=== PATIENT | female | born 1935 | race Caucasian/White ===

== ENCOUNTER → 2016-11-24 | Outpatient (CLI) | payer OTHER ==
[~2016-11-24] MED LIST: ADULT LOW DOSE81 MG PO; ADVAIR 250-501 EACH INH; ALIGN4 MG PO; AMBIEN 5 MG TABL5 M1 PO; ARTHRITIS PAIN650 M3 PO; ASPIR 8181 M1 PO; AUGMENTIN 875875 MG PO; BENTYL 10 MG CA10 MG PO; BENTYL 20 MG TA20 M1 PO; BENTYL20 MG PO; BENZONATATE100 MG PO; BISAC-EVAC10 MG RECTAL; CARBIDOPA-LEVO1 EAC9 PO; CEFDINIR300 MG PO; CITRUCEL CLEAR539 G1 PO; DIOVAN HCT 1601 EAC1 PO; DIOVAN160 MG PO; FLAGYL500 MG PO; FLONASE 0.05%50 MCG NASAL; GENASAL NS; HYDROCODON-ACE1 EAC7 PO; HYDROCODONE-APA1 TA1 PO; INDERAL LA 80 M80 MG PO; INDERAL LA60 MG PO; INDERAL LA80 MG PO; KLOR-CON 1010 MEQ PO; LASIX 20 MG TAB20 MG PO; LASIX 40 MG TAB40 M1 PO; LASIX 40 MG TAB40 M2 PO; LIPITOR10 MG PO; MELATONIN3 MG PO; MIRALAX17 GM PO; MUCINEX TA600 MG/TA1 PO; NORCO 5-325 TA1 EACH PO; OXYBUTYNIN 5 MG5 M2 PO; PLAVIX 75 MG TA75 M1 PO; PLAVIX 75 MG TA75 MG PO; POTASSIUM CHLO10 ME1 PO; PRAVACHOL40 MG PO; PROAIR HFA8.5 GM INH; PROBIOTIC1 EAC1 PO; PROMETHAZINE-C120 ML PO; REMERON 30 MG T30 M1 PO; SINEMET 25-1001 EAC1 PO; SPIRIVA INH; TOBRAMYCIN SULFA5 ML OP; VENTOLIN HFA 1818 GM INH; VENTOLIN17 GM INH; VISTARIL 25 MG25 M1 PO; VITAMIN E200 UNI4 PO; VITAMIN E200 UNIT PO; VITAMIN E400 UNIT PO; XARELTO10 M1 PO; ZOCOR40 MG PO; ZPAK PO; [UNRECOGNIZED DRUG - OTHER]
== END ==
LOC: RAD 13:33
DX: J44.9 Chronic obstructive pulmonary disease, unspecified (principal); J90 Pleural effusion, not elsewhere classified

== ENCOUNTER 2016-12-10 12:19 | Emergency (ER) | payer OTHER ==
[~2016-12-10] VITALS: Ht 162.6 cm; Wt 68.0 kg
[2016-12-10 12:47] LABS: HEMOGLOBIN 10.2 gm/dL (12.0-15.0); MCH 28.3 pg (26.0-34.0); MCV 88.7 fL (80.0-100.0); PLATELET COUNT 320 thou/uL (150-400); RBC 3.61 mil/uL (4.20-5.00); RDW 14.9 % (10.5-14.5); WBC 10.8 thou/uL (4.0-11.0)
[2016-12-10 12:57] LABS: MANUAL DIFF YES
[2016-12-10 12:58] LABS: ANION GAP 6 mmol/L (7-16); BUN 21 mg/dL (7-18); CHLORIDE 104 mmol/L (98-107); CO2 28 mmol/L (21-32); CREATININE 0.8 mg/dL (0.6-1.0); GLUCOSE 107 mg/dL (74-106); POTASSIUM 4.2 mmol/L (3.5-5.1); SODIUM 138 mmol/L (136-145)
[2016-12-10 13:02] LABS: APTT 27.7 Seconds (24.5-32.8); PROTIME 10.8 Seconds (9.3-11.4)
[2016-12-10 13:15] LABS: ALBUMIN 3.3 g/dL (3.4-5.0); ALKALINE PHOSPHATASE 127 U/L (46-116); CK-MB MASS < 0.5 ng/mL (<0.5-3.6); MAGNESIUM 2.2 mg/dL (1.8-2.4); NT-PRO BRAIN NAT PEPTIDE 2344 pg/mL (<300); SGOT 15 U/L (15-37); SGPT 17 U/L (30-65); TOTAL BILIRUBIN 0.4 mg/dL (<0.1-1.0); TROPONIN-I < 0.04 ng/mL (<0.04-0.07)
[2016-12-10 14:39] LABS: ABSOLUTE NEUTROPHILS 8.2 thou/uL (1.4-8.2); ANISOCYTOSIS 2+; POIKILOCYTOSIS SLIGHT; POLYCHROMASIA OCCASIONAL; TOTAL CELL COUNT 100
[2016-12-10] MEDS ORDERED: NITROGLYCERIN0.4 MG SUBLING (15:28)
== END 2016-12-10 16:20 | disposition home or self-care (01) ==
LOC: ER 12:19
PROVIDERS: Emergency Medicine
DX: R07.89 Other chest pain (principal); Z90.711 Acquired absence of uterus with remaining cervical stump; E78.00 Pure hypercholesterolemia, unspecified; J45.909 Unspecified asthma, uncomplicated; K21.9 Gastro-esophageal reflux disease without esophagitis; F32.9 Major depressive disorder, single episode, unspecified; I11.0 Hypertensive heart disease with heart failure; I50.9 Heart failure, unspecified; F10.99 Alcohol use, unspecified with unspecified alcohol-induced disorder; Z98.890 Other specified postprocedural states; Z79.82 Long term (current) use of aspirin; Z88.1 Allergy status to other antibiotic agents; Z88.8 Allergy status to other drugs, medicaments and biological substances

== ENCOUNTER → 2017-02-20 | Outpatient (CLI) | payer OTHER ==
[~2017-02-20] MED LIST changes: +NITROGLYCERIN0.4 MG SUBLING
== END ==
LOC: CAT 10:21
DX: J96.11 Chronic respiratory failure with hypoxia (principal); J43.1 Panlobular emphysema; J90 Pleural effusion, not elsewhere classified; J84.9 Interstitial pulmonary disease, unspecified

== ENCOUNTER 2017-08-29 09:04 | Emergency (ER) | payer OTHER ==
[~2017-08-29] VITALS: Ht 162.6 cm; Wt 64.4 kg
[2017-08-29 10:30] VITALS: BP 121/74
== END 2017-08-29 10:31 | disposition home or self-care (01) ==
LOC: ER 09:04
DX: R04.0 Epistaxis (principal); E78.00 Pure hypercholesterolemia, unspecified; J45.909 Unspecified asthma, uncomplicated; K21.9 Gastro-esophageal reflux disease without esophagitis; F32.9 Major depressive disorder, single episode, unspecified; I11.0 Hypertensive heart disease with heart failure; I50.9 Heart failure, unspecified; G20 Parkinson's disease; Z90.711 Acquired absence of uterus with remaining cervical stump; Z95.5 Presence of coronary angioplasty implant and graft; Z90.49 Acquired absence of other specified parts of digestive tract; Z88.8 Allergy status to other drugs, medicaments and biological substances; Z87.891 Personal history of nicotine dependence

== ENCOUNTER 2017-10-26 10:06 | Emergency (ER) | payer OTHER ==
[~2017-10-26] VITALS: Ht 162.6 cm; Wt 68.5 kg
--- NOTE | ~2017-10-26 | EKG ---
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
[2017-10-26 11:30] LABS: ABSOLUTE NEUTROPHILS 9.1 thou/uL (1.4-8.2); BASOPHILS 0.4 % (0.0-2.0); EOSINOPHILS 0.6 % (0.0-3.0); HEMATOCRIT 35.5 % (37.0-47.0); HEMOGLOBIN 11.7 gm/dL (12.0-15.0); LYMPHOCYTES 4.9 % (24.0-44.0); MCH 29.5 pg (26.0-34.0); MCHC 32.9 g/dL (28.0-37.0); MCV 89.7 fL (80.0-100.0); MONOCYTES 8.9 % (1.0-8.0); PLATELET COUNT 226 thou/uL (150-400); POLYS 85.2 % (36.0-66.0); RBC 3.96 mil/uL (4.20-5.00); RDW 16.1 % (10.5-14.5); WBC 10.7 thou/uL (4.0-11.0)
[2017-10-26 11:38] LABS: ANION GAP 7 mmol/L (7-16); BUN 19 mg/dL (7-18); CALCIUM 8.7 mg/dL (8.5-10.1); CHLORIDE 102 mmol/L (98-107); CO2 31 mmol/L (21-32); CREATININE 0.8 mg/dL (0.6-1.0); GLUCOSE 116 mg/dL (74-106); POTASSIUM 3.6 mmol/L (3.5-5.1); SODIUM 140 mmol/L (136-145)
[2017-10-26 11:47] LABS: ALBUMIN 3.1 g/dL (3.4-5.0); SGOT 17 U/L (15-37); SGPT 22 U/L (30-65); TOTAL BILIRUBIN 0.6 mg/dL (<0.1-1.0); TOTAL PROTEIN 6.7 g/dL (6.4-8.2); TROPONIN-I < 0.04 ng/mL (<0.06)
[2017-10-26 12:22] LABS: URINE BILIRUBIN NEGATIVE (Negative); URINE BLOOD NEGATIVE (Negative); URINE CLARITY CLEAR; URINE COLOR YELLOW; URINE GLUCOSE-RANDOM* NEGATIVE (Negative); URINE KETONES NEGATIVE (Negative); URINE LEUKOCYTES-REFLEX TRACE (Negative); URINE NITRITE-REFLEX NEGATIVE (Negative); URINE PROTEIN (DIPSTICK) NEGATIVE (Negative); URINE UROBILINOGEN 0.2 E.U./dl (0.2-1.0)
[2017-10-26] MEDS ORDERED: SENNA8.6 MG PO (13:52)
== END 2017-10-26 13:44 | disposition home or self-care (01) ==
LOC: ER 10:06
PROVIDERS: Physician Assistant
DX: R19.7 Diarrhea, unspecified (principal); K64.9 Unspecified hemorrhoids; R06.02 Shortness of breath; R10.31 Right lower quadrant pain; R10.32 Left lower quadrant pain; I11.0 Hypertensive heart disease with heart failure; I50.9 Heart failure, unspecified; E78.5 Hyperlipidemia, unspecified; J45.909 Unspecified asthma, uncomplicated; F17.210 Nicotine dependence, cigarettes, uncomplicated; F32.9 Major depressive disorder, single episode, unspecified; Z90.89 Acquired absence of other organs; Z88.1 Allergy status to other antibiotic agents; Z88.8 Allergy status to other drugs, medicaments and biological substances

== ENCOUNTER 2018-01-20 12:45 | Inpatient (IN) | payer OTHER ==
[~2018-01-20] VITALS: Ht 162.6 cm; Wt 68.0 kg
--- NOTE | ~2018-01-20 | EKG ---
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: Juan Antonio WILSON : 1935 Requested By: Izaiah Briceño Order Number: [id number] MD: Izaiah Briceño Measurements Intervals [place] Rate: 75 P: 73 [place]: 142 QRS: 38 QRSD: 93 T: 55 QT: 393 QTc: 439 Interpretive Statements Sinus rhythm Multiple ventricular premature complexes Nonspecific ST segment abnormality Compared to ECG 10/26/2017 10:35:38 Ventricular premature complex(es) now present Electronically Signed On 01-22-2018 16:41:18 CDT by Izaiah Briceño [email or web address] <ELECTRONICALLY SIGNED> By: Izaiah Briceño MD, [facility] 01/22/18 1641 1114 1114 Izaiah Briceño MD, [facility] /EPI
[~2018-01-20 12:45] MED LIST changes: +SENNA8.6 MG PO
[2018-01-20 12:46] VITALS: BP 174/43
[2018-01-20 13:17] LABS: ABSOLUTE NEUTROPHILS 11.7 thou/uL (1.4-8.2); BASOPHILS 0.8 % (0.0-2.0); EOSINOPHILS 2.2 % (0.0-3.0); HEMATOCRIT 32.5 % (37.0-47.0); HEMOGLOBIN 10.1 gm/dL (12.0-15.0); LYMPHOCYTES 7.1 % (24.0-44.0); MCH 25.9 pg (26.0-34.0); MCV 83.4 fL (80.0-100.0); MONOCYTES 8.7 % (1.0-8.0); PLATELET COUNT 388 thou/uL (150-400); POLYS 81.2 % (36.0-66.0); RDW 16.3 % (10.5-14.5); WBC 14.4 thou/uL (4.0-11.0)
[2018-01-20 13:26] LABS: ANION GAP 10 mmol/L (7-16); BUN 22 mg/dL (7-18); CHLORIDE 101 mmol/L (98-107); CO2 26 mmol/L (21-32); CREATININE 1.1 mg/dL (0.6-1.0); GLUCOSE 91 mg/dL (74-106); POTASSIUM 4.1 mmol/L (3.5-5.1); SODIUM 137 mmol/L (136-145)
[2018-01-20 13:34] LABS: TROPONIN-I <0.06 ng/mL (<0.06)
[2018-01-20] MEDS ORDERED: CARBIDOPA-LEVO1 EA10 PO (16:12)
[2018-01-20] MEDS ORDERED: SYNTHROID50 MCG PO (16:13)
[2018-01-20 16:17] VITALS: BP 127/54
[2018-01-20 16:50] VITALS: BP 127/54
[2018-01-20 17:24] VITALS: BP 183/59
[2018-01-20 20:01] VITALS: BP 154/52
[2018-01-21 04:44] VITALS: BP 166/83
[2018-01-21 08:00] VITALS: BP 150/64
[2018-01-21 10:00] LABS: HEMATOCRIT 30.1 % (37.0-47.0); HEMOGLOBIN 9.5 gm/dL (12.0-15.0); MCH 26.2 pg (26.0-34.0); MCHC 31.6 g/dL (28.0-37.0); MCV 82.8 fL (80.0-100.0); RBC 3.64 mil/uL (4.20-5.00); WBC 14.9 thou/uL (4.0-11.0)
[2018-01-21 10:13] LABS: CALCIUM 9.2 mg/dL (8.5-10.1); POTASSIUM 4.5 mmol/L (3.5-5.1)
[2018-01-21 20:00] VITALS: BP 137/46
[2018-01-22 04:57] VITALS: BP 188/72
[2018-01-22 09:21] VITALS: BP 187/70
[2018-01-22 13:51] VITALS: BP 187/70
[2018-01-22 16:18] VITALS: BP 187/70
[2018-01-22 17:44] VITALS: BP 141/70
[2018-01-22 19:42] VITALS: BP 138/51
[2018-01-23 04:07] VITALS: BP 181/86
[2018-01-23 08:00] VITALS: BP 167/64
[2018-01-23] MEDS ORDERED: AZITHROMYCIN 2250 MG PO (08:21)
[2018-01-23] MEDS ORDERED: CEFDINIR300 MG PO (08:22)
[2018-01-23] MEDS ORDERED: PREDNISONE 10 M10 MG PO (08:22)
[2018-01-23 15:25] VITALS: BP 160/76
[2018-01-23 18:58] VITALS: BP 137/57
[2018-01-24 03:22] VITALS: BP 179/61
[2018-01-24 09:21] VITALS: BP 110/50
[2018-01-24 10:24] LABS: CALCIUM 9.4 mg/dL (8.5-10.1)
[2018-01-24 21:35] VITALS: BP 183/70
[2018-01-25 03:30] VITALS: BP 197/85
[2018-01-25 07:34] VITALS: BP 154/52
[2018-01-25 11:05] VITALS: BP 187/70
[2018-01-25 12:28] VITALS: BP 187/70
== END 2018-01-25 12:06 | disposition home health service (06) | DRG 871 ==
LOC: ER 12:45 → EROBS 14:26 → 4E 14:26
PROVIDERS: Emergency Medicine; Family Medicine
DX: A41.9 Sepsis, unspecified organism (principal); J18.9 Pneumonia, unspecified organism; J44.0 Chronic obstructive pulmonary disease with (acute) lower respiratory infection; I50.32 Chronic diastolic (congestive) heart failure; J96.11 Chronic respiratory failure with hypoxia; K55.1 Chronic vascular disorders of intestine; J44.1 Chronic obstructive pulmonary disease with (acute) exacerbation; Z96.641 Presence of right artificial hip joint; E78.00 Pure hypercholesterolemia, unspecified; J45.909 Unspecified asthma, uncomplicated; F32.9 Major depressive disorder, single episode, unspecified; I35.0 Nonrheumatic aortic (valve) stenosis; I25.10 Atherosclerotic heart disease of native coronary artery without angina pectoris; I65.29 Occlusion and stenosis of unspecified carotid artery; I11.0 Hypertensive heart disease with heart failure; E78.5 Hyperlipidemia, unspecified; D64.9 Anemia, unspecified; G20 Parkinson's disease; I73.9 Peripheral vascular disease, unspecified; Z79.82 Long term (current) use of aspirin; Z79.899 Other long term (current) drug therapy; Z90.49 Acquired absence of other specified parts of digestive tract; Z88.8 Allergy status to other drugs, medicaments and biological substances; Z98.41 Cataract extraction status, right eye; Z95.820 Peripheral vascular angioplasty status with implants and grafts; Z90.711 Acquired absence of uterus with remaining cervical stump; Z98.42 Cataract extraction status, left eye; Z88.1 Allergy status to other antibiotic agents; Z87.891 Personal history of nicotine dependence
CPT/HCPCS: 10183

== ENCOUNTER 2018-03-10 09:08 | Inpatient (IN) | payer OTHER ==
[~2018-03-10] VITALS: Ht 162.6 cm; Wt 68.9 kg
--- NOTE | ~2018-03-10 | HC ---
[facility] [place] [address] CONSULTATION Name: EARLINE POWELL Room #: 454-P [facility] IN M.R.#: [id number] Admission: 03/10/18 Attend Phys: Lei Wayne MD Discharge: Date of : 34 Report #: [id number] THIS REPORT FOR: //name// CC: Lei Wayne DATE OF SERVICE: 03/10/2018 REASON FOR CONSULTATION: Elevated proBNP. HISTORY OF PRESENT ILLNESS: The patient is an 82-year-old woman with a history of diffuse vascular disease including remote inferior mesenteric artery stenting. Her history includes severe COPD and minimal coronary disease by prior angiography as well as mild aortic stenosis. An echocardiogram a little over a year ago demonstrated normal ejection fraction, mild aortic stenosis and moderate pulmonary hypertension. She has had numerous admissions to the hospital primarily related to exacerbation in her lung disease. Today's admission is no different. Her BNP has never been normal dating back to 2013. Today's BNP level is 7284. She denies orthopnea or paroxysmal nocturnal dyspnea. No lower extremity edema. She denies palpitations, near syncope or syncope. No chest heaviness or pressure. Her shortness of breath seemed to worsen along with hypoxemia about 4 days ago. She was offered admission to the hospital last week, although declined. Her oxygen requirements chronically are 2 liters. Recently, she has been on 4 liters. She has an occasional nonproductive cough. No recent changes in her medicines. She denies fevers, chills or night sweats. HOME MEDICATIONS: Include potassium 10 mEq daily, Spiriva, Advair, propranolol LA 80 mg daily, atorvastatin 40 mg daily, aspirin 81 mg daily, Lasix 20 mg as needed, levodopa and carbidopa 1 tablet 3 times a day, levothyroxine 50 mcg daily, Atrovent nebulizer. ALLERGIES: SHE IS ALLERGIC TO CIPRO, QUINOLONES, ERYTHROMYCIN AND PSEUDOEPHEDRINE. SOCIAL HISTORY: She is a former smoker, nondrinker. FAMILY HISTORY: Unremarkable for premature coronary artery disease. PAST MEDICAL HISTORY: Notable for COPD, mesenteric artery stenting, minimal coronary disease by prior angiography, dyslipidemia, hypertension, Parkinson disease, bilateral breast reduction, right total hip replacement, history of peptic ulcer disease with GI bleeding and erosive esophagitis (2012). REVIEW OF SYSTEMS: All systems negative except as that noted above. PHYSICAL EXAMINATION: [facility] [address] [place] [address] CONSULTATION Name: EARLINE POWELL Room #: 454-P [facility] IN M.R.#: [id number] Admission: 03/10/18 Attend Phys: Lei Wayne MD Discharge: Date of : 34 Report #: [id number] GENERAL: A pleasant woman who is in no distress. VITAL SIGNS: Blood pressure is 140/60, heart rate of 80 and regular. She is afebrile. Height 5 feet 4 inches tall, 154 pounds. This is at or near her "dry weight." HEENT: There are neither xanthelasma, subcutaneous xanthomata, oral mucosal or digital cyanosis or kyphoscoliosis present. CHEST: Clear to auscultation and percussion. CARDIOVASCULAR: Regular rate and rhythm with normal S1 and increased pulmonic closure sound. Jugular venous pressure is not elevated. ABDOMEN: Soft and nontender. EXTREMITIES: Without cyanosis, clubbing or edema. Radial pulses are 2+. NEUROLOGIC: She is alert with a nonfocal exam. LABORATORY DATA: Sodium 139, potassium 3.6, creatinine 1.0. Serum iron 17, percent saturation 5%. Troponin 0. White count 17,000, hemoglobin 9.6, hemoglobin a year ago was 13, platelet count 361. Chest x-ray demonstrates no acute process, normal heart size and vascularity. CT scan negative for pulmonary embolism. IMPRESSION: 1. Chronic obstructive pulmonary disease exacerbation; pulmonary hypertension. 2. Coronary artery disease, mild and asymptomatic. Normal ejection fraction. 3. Aortic stenosis, nonrheumatic, mild. 4. Chronic diastolic heart failure. 5. Hypertension. 6. Peripheral vascular disease with remote mesenteric stenting, clinically stable. 7. Dyslipidemia. 8. Anemia, iron deficient. RECOMMENDATIONS: 1. Resume usual medicines. Volume status is stable. 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 2. I agree with plans directed primarily towards exacerbation of her lung disease. I have discussed these issues with her name detail. Thank you for asking me to participate in her care. <ELECTRONICALLY SIGNED> By: Izaiah Briceño MD, [facility] 03/13/18 0956 1702 0414 Izaiah Briceño MD, FAC /nt
--- NOTE | ~2018-03-10 | 2DMMODE ---
[facility] [address] [place] [address] 2 D/M-MODE ECHOCARDIOGRAM Name: EARLINE POWELL Room #: 454-P [facility] IN [facility].#: [id number] Admission: 03/10/18 Attend Phys: Lei Wayne, Discharge: Date of : 34 Date of Service: 03/11/18 1548 Report #: [id number] THIS REPORT FOR: //name// APPROVED REPORT Study performed: 03/11/2018 13:31:53 EXAM: Comprehensive 2D, Doppler, and color-flow Echocardiogram Patient Location: Bedside Room #: 454 Status: routine BSA: 1.75 HR: 76 bpm BP: 167/64 mmHg Rhythm: NSR Other Information Study Quality: Good Indications Dyspnea. Hx: CHF, COPD, HTN, PVD. 2D Dimensions RVDd: 33.09 mm IVSd: 12.00 (7-11mm) LVOT Diam: 18.94 (18-24mm) LVDd: 45.00 mm PWd: 12.00 (7-11mm) Ascending Ao: 27.10 (22-36mm) LVDs: 31.01 (25-40mm) Aortic Root: 29.15 mm Volumes Left Atrial Volume (Systole) Single Plane 4CH: 37.66 mL Single Plane 2CH: 68.07 mL Aortic Valve AoV Peak Leonidas.: 2.69 m/s AO Peak Gr.: 28.93 mmHg LVOT Max P.58 mmHg AO Mean Gr.: 18.25 mmHg AO V2 Mean: 2.08 m/s LVOT Max V: 1.07 m/s AO V2 VTI: 64.35 cm CARLOS Vmax: 1.12 cm2 Mitral Valve E/A Ratio: 0.8 MV Decel. Time: 222.66 ms [facility] [address] [place] [address] 2 D/M-MODE ECHOCARDIOGRAM Name: EARLINE POWELL Room #: 454-P [facility] IN .R.#: [id number] Admission: 03/10/18 Attend Phys: Lei Wayne, Discharge: Date of : 34 Date of Service: 03/11/18 1548 Report #: [id number] MV E Max Leonidas.: 1.02 m/s MV A Leonidas.: 1.35 m/s MV PHT: 64.57 ms IVRT: 58.82 ms Pulmonary Valve PV Peak Leonidas.: 0.95 m/s PV Peak Gr.: 3.61 mmHg Pulmonary Vein P Vein S: 0.58 m/s P Vein D: 0.69 m/s P Vein S/D Ratio: 0.84 Tricuspid Valve TR Peak Leonidas.: 3.25 m/s RAP Estimate: 10.00 mmHg TR Peak Gr.: 42.14 mmHg PA Pressure: 52.00 mmHg Left Ventricle The left ventricle is normal size. There is normal LV segmental wall motion. Mild concentric left ventricular hypertrophy. Left ventricular systolic function is normal. LVEF is 60-65%. Mild diastolic dysfunction is present (impaired relaxation pattern). Right Ventricle The right ventricle is normal size. The right ventricular systolic function is normal. Atria The left atrium size is normal. The right atrium size is normal. Aortic Valve Aortic valve is mildly calcified, trileaflet. Mild aortic regurgitation. Mild aortic stenosis. Peak pressure gradient is 29mmHg and a mean gradient of 18mmHg. Mitral Valve Mild mitral annular calcification. Mild mitral regurgitation. No evidence of mitral valve stenosis. Tricuspid Valve The tricuspid valve is normal in structure. Trace to mild tricuspid regurgitation. Estimated PAP is 50mmHg. [address] [address] 2 D/M-MODE ECHOCARDIOGRAM Name: EARLINE POWELL Room #: 454-P [facility] IN ..#: [id number] Admission: 03/10/18 Attend Phys: Lei Wayne, Discharge: Date of : 34 Date of Service: 03/11/18 1548 Report #: [id number] Pulmonic Valve The pulmonary valve is normal in structure. There is no pulmonic valvular regurgitation. Great Vessels The aortic root is normal in size. The ascending aorta is normal in size. IVC is normal in size and collapses <50% with inspiration. Pericardium There is no pericardial effusion. <Conclusion> Left ventricular systolic function is normal. There is normal LV segmental wall motion. LVEF is 60-65%. Mild diastolic dysfunction Aortic valve is mildly calcified, trileaflet. Mild aortic stenosis. Peak pressure gradient is 29mmHg and a mean gradient of 18mmHg. Mild aortic regurgitation. Mild mitral annular calcification. Mild mitral regurgitation. Trace to mild tricuspid regurgitation. Estimated pulmonary artery pressure of 50mmHg. There is no pericardial effusion. <ELECTRONICALLY SIGNED> By: Izaiah Briceño MD, FACC 03/11/18 1548 1548 1548 Izaiah Briceño MD, FACC /INF
--- NOTE | ~2018-03-10 | HC ---
[facility] [place] [address] CONSULTATION Name: EARLINE POWELL Room #: 454-P [facility] IN M.R.#: [id number] Admission: 03/10/18 Attend Phys: Lei Wayne MD Discharge: Date of : 34 Report #: [id number] THIS REPORT FOR: //name// CC: Lei Wayne Pulmonary Consultation REFERRING PHYSICIAN: Lei Wayne MD; Ms. Cara Lomas, physician parts room assistant from the ER. REASON FOR CONSULTATION: Dyspnea. HISTORY OF PRESENT ILLNESS: The patient is an 82-year-old white female who presents to emergency room with progressive dyspnea for the past 5 days. A pulmonary consultation was requested. The patient is known to this physician. In fact, she was seen in the office on 03/04. At that time, she is felt to be in moderate distress along with dyspnea and weakness. I had recommended hospitalization at that time, but she refused. She was given prednisone and antibiotics instead. Without improvement, she presented to the emergency room. Otherwise, denies any sore throat, febrile illness, chest pain, productive cough. Baseline FEV1 is 1.0 L, 60% of the predicted, she is currently on 2 L of O2. Her FVC measured 1.38 L, 57% predicted. Her recent FEV1 on 03/04/2018 showed a FEV1 of 0.83 L or 49% predicted. She is normally on nebulized Pulmicort 0.5 mg b.i.d., Proventil HFA 2 puffs p.r.n., Advair 250 mcg one puff twice a day, nebulized Xopenex p.r.n., Spiriva 1 puff once a day. PAST MEDICAL HISTORY: As mentioned above, COPD, severe impairment, she was felt to have a component of asthma/COPD overlap, 2 L of O2 chronically, aortic stenosis, coronary artery disease, carotid artery disease, hypertension, ischemic colitis, peripheral vascular disease. PAST SURGICAL HISTORY: Notable for appendectomy, hip surgery tunes 3, hysterectomy, sinus surgery. She had abdominal surgery for ischemic colitis, breast reduction surgery, appendectomy and adenoidectomy. ALLERGIES: CIPROFLOXACIN, reaction not specified; ERYTHROMYCIN, reaction not specified; IRON results in GI intolerance. PSEUDOEPHEDRINE causes palpitations. CURRENT HOME MEDICATIONS: Include Proventil, aspirin, Lipitor, nebulized Pulmicort, Sinemet, Bentyl, Advair, Lasix, nebulized ipratropium along with nebulized Xopenex p.r.n., Synthroid, Nitrostat, Ditropan, potassium supplements, [place] [address] CONSULTATION Name: EARLINE POWELL Room #: 454-P [facility].#: [id number] Admission: 03/10/18 Attend Phys: Lei Wayne MD Discharge: Date of : 34 Report #: [id number] Inderal, Spiriva. FAMILY HISTORY: Notable for sister with lung and renal cell carcinoma. Both parents . SOCIAL HISTORY: The patient has smoked 1 pack a day for 20 years. She quit in 1979. She drinks socially. She still lives independently at home. REVIEW OF SYSTEMS: As mentioned above, otherwise 10-point system review negative. PHYSICAL EXAMINATION: GENERAL: She is awake, alert, appears moderately dyspneic, mildly distressed. VITAL SIGNS: Temperature is 98 degrees Fahrenheit, pulse is 90, respiratory rate is 20, blood pressure 150/60 mmHg, saturation 95%. HEENT: Unremarkable. NECK: Supple without lymphadenopathy or thyromegaly. CHEST: Breath sounds are decreased bilaterally with mild expiratory wheezes. CARDIOVASCULAR: Normal S1, S2. There are no rubs, murmurs or gallops. There is no JVD. There is no carotid bruit. Pulses are 2+/4+ bilaterally. ABDOMEN: Soft, nontender, no organomegaly or masses felt. GENITOURINARY: Deferred. RECTAL: Deferred. EXTREMITIES: No cyanosis, clubbing or edema. IMAGING DATA: Chest x-ray on admission is clear. CT chest angiogram performed shows patchy ground-glass opacities. DIAGNOSTIC DATA: EKG shows minimal ST depression. Otherwise, no acute ischemic changes. LABORATORY DATA: BNP is 7200. Electrolytes are normal. Liver enzymes are mildly abnormal. WBC 32249, hemoglobin 9.6, platelets are normal, no evidence of significant bandemia. Albumin 3.0. IMPRESSION: 1. Progressive dyspnea in this 82-year-old white female, probably secondary to exacerbation of underlying chronic obstructive pulmonary disease along with deconditioning and weakness. CT chest angiogram shows patchy ground glass opacity. Pneumonia is felt to be likely though cannot be ruled out. Other considerations are good possibility of other inflammatory processes such as interstitial lung disease, hypersensitivity pneumonitis. 2. Chronic obstructive pulmonary disease, severe impairment with exacerbation. 3. Acute on chronic hypoxic respiratory failure, she is normally on 2 L of O2. [facility] [address] [place] [address] CONSULTATION Name: EARLINE POWELL Room #: 454-P [facility] IN M.R.#: [id number] Admission: 03/10/18 Attend Phys: Lei Wayne MD Discharge: Date of : 34 Report #: [id number] 4. Hypertension. 5. Aortic stenosis. 6. Coronary artery disease. 7. Possible acute on chronic diastolic heart failure given chest CT findings. RECOMMENDATION: We will continue corticosteroids, bronchodilators along with broad spectrum antibiotics. She will need a followup chest x-ray regarding ground glass opacities. She may need further workup if opacities persistent. In the meantime, we would also consider gentle diuresis given chest CT findings. DVT and GI prophylaxis will be addressed. Thank you for this consultation. <ELECTRONICALLY SIGNED> By: Dino Grande MD 03/11/18 1933 1851 0422 Dino Grande MD /nt
--- NOTE | ~2018-03-10 | EKG ---
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: Juan Antonio MENDOZA RN : 1935 Requested By: Lisa Lomas Order Number: [id number] MD: Izaiah Briceño Measurements Intervals [place] Rate: 85 P: 75 ND: 135 QRS: 25 QRSD: 90 T: 49 QT: 370 QTc: 440 Interpretive Statements Sinus rhythm Minimal ST depression, diffuse leads Compared to ECG 01/22/2018 11:14:07 Ventricular premature complex(es) no longer present Electronically Signed On 03-10-2018 17:15:24 CDT by Izaiah Briceño [email or web address] <ELECTRONICALLY SIGNED> By: Izaiah Briceño MD, [facility] 03/10/18 1715 0956 0956 Izaiah Briceño MD, [facility] /EPI
[~2018-03-10 09:08] MED LIST changes: +AZITHROMYCIN 2250 MG PO; +CARBIDOPA-LEVO1 EA10 PO; +PREDNISONE 10 M10 MG PO; +SYNTHROID50 MCG PO
[2018-03-10 09:09] VITALS: BP 181/54
[2018-03-10 09:35] LABS: ABSOLUTE NEUTROPHILS 15.3 thou/uL (1.4-8.2); BASOPHILS 1.1 % (0.0-2.0); EOSINOPHILS 1.1 % (0.0-3.0); HEMATOCRIT 31.2 % (37.0-47.0); HEMOGLOBIN 9.6 gm/dL (12.0-15.0); LYMPHOCYTES 3.7 % (24.0-44.0); MCH 23.5 pg (26.0-34.0); MCHC 30.7 g/dL (28.0-37.0); MCV 76.6 fL (80.0-100.0); MONOCYTES 5.3 % (1.0-8.0); PLATELET COUNT 361 thou/uL (150-400); POLYS 88.8 % (36.0-66.0); RBC 4.07 mil/uL (4.20-5.00); RDW 18.8 % (10.5-14.5); WBC 17.3 thou/uL (4.0-11.0)
[2018-03-10 09:45] LABS: ANION GAP 7 mmol/L (7-16); BUN 15 mg/dL (7-18); CALCIUM 9.5 mg/dL (8.5-10.1); CHLORIDE 102 mmol/L (98-107); CO2 30 mmol/L (21-32); GLUCOSE 180 mg/dL (74-106); POTASSIUM 3.6 mmol/L (3.5-5.1); SODIUM 139 mmol/L (136-145)
[2018-03-10 09:48] LABS: PROTIME 9.9 Seconds (9.3-11.4)
[2018-03-10 09:53] LABS: SGOT 18 U/L (15-37); SGPT 23 U/L (30-65); TOTAL BILIRUBIN 0.5 mg/dL (<0.1-1.0); TOTAL PROTEIN 7.1 g/dL (6.4-8.2); TROPONIN-I <0.06 ng/mL (<0.06)
[2018-03-10 10:43] LABS: ANISOCYTOSIS 1+; HYPOCHROMASIA SLIGHT; PLATELET ESTIMATE NORMAL
[2018-03-10 10:46] LABS: URINE BILIRUBIN NEGATIVE (Negative); URINE BLOOD NEGATIVE (Negative); URINE CLARITY CLEAR; URINE COLOR YELLOW; URINE GLUCOSE-RANDOM* NEGATIVE (Negative); URINE KETONES NEGATIVE (Negative); URINE NITRITE-REFLEX NEGATIVE (Negative); URINE PROTEIN (DIPSTICK) NEGATIVE (Negative); URINE UROBILINOGEN 0.2 E.U./dl (0.2-1.0)
[2018-03-10 10:55] LABS: URINE LEUKOCYTES-REFLEX TRACE (Negative)
[2018-03-10] MEDS ORDERED: IPRAT-ALBUT 0.5-3 ML (12:27)
[2018-03-10] MEDS ORDERED: ALIGN4 MG PO (12:28)
[2018-03-10 13:53] VITALS: BP 103/98
[2018-03-10 14:17] VITALS: BP 145/47
[2018-03-10 15:04] VITALS: BP 149/63
[2018-03-10 16:00] LABS: % SATURATION 5 % (20-39); IRON 17 ug/dL (50-170); TIBC 353 ug/dL (250-450)
[2018-03-10 19:25] VITALS: BP 165/63
[2018-03-11 01:49] VITALS: BP 165/63
[2018-03-11 04:27] LABS: CALCIUM 8.4 mg/dL (8.5-10.1); POTASSIUM 3.6 mmol/L (3.5-5.1)
[2018-03-11 07:23] VITALS: BP 192/78
[2018-03-11 08:27] VITALS: BP 167/64
[2018-03-11 19:31] VITALS: BP 139/66
[2018-03-11 23:01] VITALS: BP 139/66
[2018-03-12 05:36] LABS: CALCIUM 8.7 mg/dL (8.5-10.1); POTASSIUM 4.3 mmol/L (3.5-5.1)
[2018-03-12 08:26] VITALS: BP 152/64
[2018-03-12 15:48] VITALS: BP 149/66
[2018-03-12 19:33] VITALS: BP 153/53
[2018-03-13 07:37] VITALS: BP 158/79
[2018-03-13 20:00] VITALS: BP 221/99
[2018-03-13 22:42] VITALS: BP 192/80
[2018-03-14 00:15] VITALS: BP 180/80
[2018-03-14 06:30] VITALS: BP 208/86
[2018-03-14 08:20] VITALS: BP 194/76
[2018-03-14 08:41] LABS: HEMATOCRIT 33.4 % (37.0-47.0); HEMOGLOBIN 10.2 gm/dL (12.0-15.0); MCH 23.6 pg (26.0-34.0); MCHC 30.4 g/dL (28.0-37.0); MCV 77.4 fL (80.0-100.0); PLATELET COUNT 488 thou/uL (150-400); RBC 4.31 mil/uL (4.20-5.00); RDW 18.9 % (10.5-14.5); WBC 26.8 thou/uL (4.0-11.0)
[2018-03-14 09:01] LABS: CALCIUM 9.8 mg/dL (8.5-10.1); CREATININE 0.8 mg/dL (0.6-1.0); MAGNESIUM 2.4 mg/dL (1.8-2.4); POTASSIUM 4.2 mmol/L (3.5-5.1)
[2018-03-14 09:11] LABS: ABSOLUTE NEUTROPHILS 25.7 thou/uL (1.4-8.2)
[2018-03-14 09:12] LABS: ANISOCYTOSIS 1+; LARGE PLATELETS OCCASIONAL; POIKILOCYTOSIS SLIGHT
[2018-03-14 09:13] LABS: POLYCHROMASIA SLIGHT
[2018-03-14 10:39] VITALS: BP 137/60
[2018-03-14 20:00] VITALS: BP 164/74
[2018-03-15 08:21] VITALS: BP 183/81
[2018-03-15 11:00] VITALS: BP 140/83
[2018-03-15 22:05] VITALS: BP 162/68
[2018-03-16 07:15] VITALS: BP 180/73
[2018-03-16 07:34] LABS: HEMATOCRIT 33.1 % (37.0-47.0); HEMOGLOBIN 10.1 gm/dL (12.0-15.0); MCH 24.1 pg (26.0-34.0); MCHC 30.5 g/dL (28.0-37.0); PLATELET COUNT 455 thou/uL (150-400); RBC 4.19 mil/uL (4.20-5.00); RDW 19.6 % (10.5-14.5); WBC 24.2 thou/uL (4.0-11.0)
[2018-03-16 07:52] LABS: ALBUMIN 2.9 g/dL (3.4-5.0); CALCIUM 9.1 mg/dL (8.5-10.1); CREATININE 0.8 mg/dL (0.6-1.0); POTASSIUM 4.1 mmol/L (3.5-5.1); TOTAL BILIRUBIN 0.2 mg/dL (<0.1-1.0); TOTAL PROTEIN 5.8 g/dL (6.4-8.2)
[2018-03-16 08:53] LABS: ABSOLUTE NEUTROPHILS 23.2 thou/uL (1.4-8.2); PLATELET ESTIMATE INCREASED
[2018-03-16] MEDS ORDERED: LISINOPRIL20 MG PO (12:40)
[2018-03-16] MEDS ORDERED: PREDNISONE 10 M10 MG PO (12:41)
[2018-03-16] MEDS ORDERED: CEFDINIR300 MG PO (12:41)
[2018-03-16 12:49] VITALS: BP 180/73
== END 2018-03-16 14:42 | disposition home health service (06) | DRG 871 ==
LOC: ER 09:08 → EROBS 11:46 → 4W 11:46 → SICU 11:46 → 4W 14:20 → SICU 03-13 19:33 → ENTRNSPT 03-16 14:04 → EDTRNSPTSTS 03-16 14:11 → SICU 03-16 14:42
PROVIDERS: Family Medicine; Internal Medicine; Pediatrics; Physician Assistant
DX: A41.9 Sepsis, unspecified organism (principal); J18.9 Pneumonia, unspecified organism; J96.21 Acute and chronic respiratory failure with hypoxia; I50.43 Acute on chronic combined systolic (congestive) and diastolic (congestive) heart failure; J44.1 Chronic obstructive pulmonary disease with (acute) exacerbation; I13.0 Hypertensive heart and chronic kidney disease with heart failure and stage 1 through stage 4 chronic kidney disease, or unspecified chronic kidney disease; E78.00 Pure hypercholesterolemia, unspecified; Z96.1 Presence of intraocular lens; Z96.641 Presence of right artificial hip joint; K58.9 Irritable bowel syndrome, unspecified; K21.9 Gastro-esophageal reflux disease without esophagitis; F32.9 Major depressive disorder, single episode, unspecified; G20 Parkinson's disease; Y95 Nosocomial condition; I35.0 Nonrheumatic aortic (valve) stenosis; I27.20 Pulmonary hypertension, unspecified; E78.5 Hyperlipidemia, unspecified; I25.10 Atherosclerotic heart disease of native coronary artery without angina pectoris; I73.9 Peripheral vascular disease, unspecified; D50.9 Iron deficiency anemia, unspecified; N18.9 Chronic kidney disease, unspecified; E03.9 Hypothyroidism, unspecified; I16.0 Hypertensive urgency; Z53.29 Procedure and treatment not carried out because of patient's decision for other reasons; Z90.89 Acquired absence of other organs; Z99.81 Dependence on supplemental oxygen; Z87.01 Personal history of pneumonia (recurrent); Z90.49 Acquired absence of other specified parts of digestive tract; Z90.710 Acquired absence of both cervix and uterus; Z98.42 Cataract extraction status, left eye; Z98.41 Cataract extraction status, right eye; Z79.899 Other long term (current) drug therapy; Z79.82 Long term (current) use of aspirin; Z88.8 Allergy status to other drugs, medicaments and biological substances; Z87.891 Personal history of nicotine dependence; Z80.51 Family history of malignant neoplasm of kidney; Z80.1 Family history of malignant neoplasm of trachea, bronchus and lung
CPT/HCPCS: 10045; 15000

== ENCOUNTER 2018-04-07 09:22 | Inpatient (IN) | payer OTHER ==
[~2018-04-07] VITALS: Ht 162.6 cm; Wt 73.5 kg
[~2018-04-07 09:22] MED LIST changes: +IPRAT-ALBUT 0.5-3 ML; +LISINOPRIL20 MG PO
[2018-04-07 09:58] VITALS: BP 162/58
[2018-04-07 12:13] LABS: HEMATOCRIT 39.9 % (37.0-47.0); HEMOGLOBIN 12.6 gm/dL (12.0-15.0); MCH 26.6 pg (26.0-34.0); MCHC 31.6 g/dL (28.0-37.0); MCV 84.1 fL (80.0-100.0); RBC 4.75 mil/uL (4.20-5.00); RDW 27.5 % (10.5-14.5); WBC 12.9 thou/uL (4.0-11.0)
[2018-04-07 12:26] LABS: ALBUMIN 3.2 g/dL (3.4-5.0); CALCIUM 9.3 mg/dL (8.5-10.1); CREATININE 0.9 mg/dL (0.6-1.0); POTASSIUM 4.2 mmol/L (3.5-5.1); TOTAL BILIRUBIN 0.5 mg/dL (<0.1-1.0); TOTAL PROTEIN 6.8 g/dL (6.4-8.2)
[2018-04-07 14:05] VITALS: BP 191/61
[2018-04-07 17:37] LABS: CALCIUM 9.3 mg/dL (8.5-10.1); MAGNESIUM 2.2 mg/dL (1.8-2.4); POTASSIUM 4.4 mmol/L (3.5-5.1)
[2018-04-07 18:26] VITALS: BP 173/98
[2018-04-07 20:05] VITALS: BP 123/43
[2018-04-07 23:36] VITALS: BP 152/59
[2018-04-08 03:15] VITALS: BP 173/69
[2018-04-08 06:27] LABS: HEMATOCRIT 32.7 % (37.0-47.0); MCH 27.2 pg (26.0-34.0); MCHC 32.1 g/dL (28.0-37.0); MCV 84.7 fL (80.0-100.0); RBC 3.86 mil/uL (4.20-5.00); RDW 27.3 % (10.5-14.5); WBC 10.2 thou/uL (4.0-11.0)
[2018-04-08 06:37] LABS: CALCIUM 8.6 mg/dL (8.5-10.1); CREATININE 0.8 mg/dL (0.6-1.0); POTASSIUM 4.6 mmol/L (3.5-5.1)
[2018-04-08 06:40] LABS: HEMOGLOBIN 10.5 gm/dL (12.0-15.0)
[2018-04-08 15:48] VITALS: BP 139/56
[2018-04-08 19:20] VITALS: BP 147/64
[2018-04-09 04:54] VITALS: BP 160/70
[2018-04-09 07:35] VITALS: BP 188/85
[2018-04-09 14:20] VITALS: BP 148/62
[2018-04-09 19:44] VITALS: BP 139/66
[2018-04-10 08:14] VITALS: BP 169/73
[2018-04-10 19:44] VITALS: BP 179/64
[2018-04-11 07:58] VITALS: BP 190/96
[2018-04-11 14:53] LABS: HEMATOCRIT 39.9 % (37.0-47.0); HEMOGLOBIN 12.6 gm/dL (12.0-15.0); MCH 26.5 pg (26.0-34.0); MCHC 31.6 g/dL (28.0-37.0); MCV 83.8 fL (80.0-100.0); RBC 4.77 mil/uL (4.20-5.00); WBC 12.2 thou/uL (4.0-11.0)
[2018-04-11 15:00] LABS: CALCIUM 9.3 mg/dL (8.5-10.1); CREATININE 1.1 mg/dL (0.6-1.0); MAGNESIUM 2.1 mg/dL (1.8-2.4); POTASSIUM 3.6 mmol/L (3.5-5.1)
[2018-04-11 20:00] VITALS: BP 127/52
[2018-04-12 06:52] LABS: HEMOGLOBIN 12.8 gm/dL (12.0-15.0); MCH 26.2 pg (26.0-34.0); MCHC 31.3 g/dL (28.0-37.0); MCV 83.7 fL (80.0-100.0); RBC 4.89 mil/uL (4.20-5.00); RDW 27.2 % (10.5-14.5); WBC 15.3 thou/uL (4.0-11.0)
[2018-04-12 07:06] LABS: CALCIUM 9.3 mg/dL (8.5-10.1); MAGNESIUM 2.2 mg/dL (1.8-2.4); POTASSIUM 3.5 mmol/L (3.5-5.1)
[2018-04-12 07:30] VITALS: BP 151/68
[2018-04-12 09:41] VITALS: BP 156/80
[2018-04-12] MEDS ORDERED: LOPRESSOR25 PO (10:36)
[2018-04-12] MEDS ORDERED: AMLODIPINE BESYL5 M1 PO (10:37)
[2018-04-12] MEDS ORDERED: AUGMENTIN 875-1 EACH PO (10:38)
== END 2018-04-12 13:15 | disposition home health service (06) | DRG 291 ==
LOC: 3W 09:22 → 4W 09:22 → SICU 04-09 19:11 → ENTRNSPT 04-12 13:18 → EDTRNSPTSTS 04-12 13:21
PROVIDERS: Family Medicine; Internal Medicine; Internal Medicine Pulmonary Disease
DX: I11.0 Hypertensive heart disease with heart failure (principal); J96.21 Acute and chronic respiratory failure with hypoxia; J44.1 Chronic obstructive pulmonary disease with (acute) exacerbation; E78.00 Pure hypercholesterolemia, unspecified; I50.9 Heart failure, unspecified; K21.9 Gastro-esophageal reflux disease without esophagitis; F32.9 Major depressive disorder, single episode, unspecified; I25.10 Atherosclerotic heart disease of native coronary artery without angina pectoris; I35.0 Nonrheumatic aortic (valve) stenosis; K58.9 Irritable bowel syndrome, unspecified; I48.91 Unspecified atrial fibrillation; Z96.641 Presence of right artificial hip joint; M19.90 Unspecified osteoarthritis, unspecified site; Z96.1 Presence of intraocular lens; Z90.49 Acquired absence of other specified parts of digestive tract; Z90.710 Acquired absence of both cervix and uterus; Z98.42 Cataract extraction status, left eye; Z98.41 Cataract extraction status, right eye; Z87.891 Personal history of nicotine dependence; Z79.51 Long term (current) use of inhaled steroids; Z79.82 Long term (current) use of aspirin; Z79.899 Other long term (current) drug therapy; Z88.1 Allergy status to other antibiotic agents; Z88.8 Allergy status to other drugs, medicaments and biological substances; Z80.8 Family history of malignant neoplasm of other organs or systems
CPT/HCPCS: 10047; 10779; 15002

== ENCOUNTER 2019-02-09 11:11 | Inpatient (IN) | payer OTHER ==
[~2019-02-09] VITALS: Ht 162.6 cm; Wt 68.0 kg
[~2019-02-09 11:11] MED LIST changes: +AMLODIPINE BESYL5 M1 PO; +AUGMENTIN 875-1 EACH PO; +LOPRESSOR25 PO
[2019-02-09 11:12] VITALS: BP 106/55
[2019-02-09 11:44] LABS: HEMATOCRIT 35.7 % (37.0-47.0); HEMOGLOBIN 11.6 gm/dL (12.0-15.0); MCH 29.8 pg (26.0-34.0); MCHC 32.3 g/dL (28.0-37.0); PLATELET COUNT 321 thou/uL (150-400); RBC 3.88 mil/uL (4.20-5.00); RDW 14.5 % (10.5-14.5); WBC 20.5 thou/uL (4.0-11.0)
[2019-02-09 11:45] LABS: BE(vivo) 1.7 mmol/L (-2 to +3); HCO3 25.6 mmol/L (22.0-26.0); PCO2 37.6 mmHg (35.0-45.0); PO2 74.9 mmHg (80.0-100.0); pH 7.451 (7.360-7.450); sO2 95.7 % (92.0-98.0)
[2019-02-09 11:50] LABS: ANION GAP 8 mmol/L (7-16); BUN 23 mg/dL (7-18); CALCIUM 9.3 mg/dL (8.5-10.1); CHLORIDE 97 mmol/L (98-107); CO2 28 mmol/L (21-32); CREATININE 1.1 mg/dL (0.6-1.0); GLUCOSE 113 mg/dL (74-106); POTASSIUM 3.7 mmol/L (3.5-5.1); SODIUM 133 mmol/L (136-145)
[2019-02-09 12:00] LABS: ALBUMIN 2.8 g/dL (3.4-5.0); SGOT 19 U/L (15-37); SGPT 8 U/L (30-65); TOTAL BILIRUBIN 0.5 mg/dL (<0.1-1.0); TOTAL PROTEIN 7.1 g/dL (6.4-8.2); TROPONIN-I <0.06 ng/mL (<0.06)
[2019-02-09 12:20] LABS: ABSOLUTE NEUTROPHILS 17.2 thou/uL (1.4-8.2); ANISOCYTOSIS SLIGHT; POIKILOCYTOSIS SLIGHT
--- NOTE | 2019-02-09 13:26 | EKG ---
[address] [address] ELECTROCARDIOGRAM REPORT Name: EARLINE POWELL Room #: 170-6 ADM IN M.R.#: [id number] ������������������ Admission: 02/09/19 ������������������ Attend Phys: Lei Wayne MD Discharge: ������������������ Date of : 34 Report #: [id number] ����������������������������������������������������������������� [id number] THIS REPORT FOR: //name// [facility] ED Test Date: 2019-02-09 Test Time: 11:49:46 Pat Name: EARLINE POWELL Department: Room: 170 Gender: F Trainer: jesus : 1935 Requested By: Anila Bryson Order Number: [id number] MD: Pavan Solorzano Measurements Intervals [place] Rate: 95 P: 72 NJ: 135 QRS: 0 QRSD: 84 T: 70 QT: 331 QTc: 416 Interpretive Statements Sinus rhythm Baseline wander in lead(s) V5 Compared to ECG 03/10/2018 09:56:42 ST (T wave) deviation no longer present Electronically Signed On 02-09-2019 13:26:24 CDT by Pavan Solorzano [email or web address] ��������������������������������������������� <ELECTRONICALLY SIGNED> ���������������������������������������� By: Pavan Solorzano MD ��������������������������������������������� 02/09/19 1326 1149 1149 Pavan Solorzano MD /[facility]
[2019-02-09 15:12] VITALS: BP 146/49
[2019-02-09 16:01] VITALS: BP 161/53
[2019-02-09 17:40] VITALS: BP 136/63
--- NOTE | 2019-02-09 18:44 | NUR ---
PATIENT ADMIT TO UNIT AT 1730. A/0 X4. SOB WITH EXERTION. DENIES PAIN. UP WITH ASSISTED. WILL KEEP MONITOR.
[2019-02-09 19:21] VITALS: BP 143/48
[2019-02-10 03:33] VITALS: BP 180/86
--- NOTE | 2019-02-10 07:12 | NUR ---
ASSUMED CARE AT 1900. PT REPORTS FEELING SOB EVEN AT REST, STATES RT TREATMENTS HAVE ONLY BEEN HELPING SLIGHTLY. MAINTAINING O2 SATS IN 90'S ON 4L O2. HAS BEEN SR-ST ON TELE, HR MOSTLY IN 90'S BUT OCCASIONALLY RISING TO 115 WITH ACTIVITY. PERSISTENT TREMORS NOTED. PT REFUSED MIDNIGHT AND 0600 DOSES OF BENTYL, STATES SHE ONLY TAKES IT WHEN SHE IS CRAMPING/BLOATED. NO OTHER CONCERNS, SHIFT REPORT GIVEN AT 0700.
[2019-02-10 07:50] VITALS: BP 151/74
--- NOTE | 2019-02-10 13:02 | NUR ---
INITIAL ASSESSMENT: CHARI reviewed chart and spoke with nursing. Pt was admitted from home due to pneumonia/acute respiratory failure. Pulm consulted. CHARI met with pt at bedside. Introduced role of SW. Pt is alert/orientated x 4. Pt reports she lives in an apt at [facility]. Prior to admission, pt was ussing a walker. Pt has home O2 and nebulizer through [facility]. Pt is currently on service with [facility]. Per pt, she will discharge home tomorrow. CHARI notified [facility] liaison. land planner to send clinical info to [facility] for review. Pt's PCP is Dr. Wayne. Contact info for [facility] placed in pt's discharge summary. CHARI notified [place] liaison of anticipated discharge plan. CHARI is following to assist as needed with discharge planning.
--- NOTE | 2019-02-10 13:21 | NUR ---
dp sent Home Health referral to [facility], [place] was notified by Dian Ribera/kayla that a referral would be faxed. Patient is likely to discharge tomorrow
[2019-02-10 15:23] VITALS: BP 132/52
--- NOTE | 2019-02-10 17:43 | NUR ---
ASSUMED PATIENT CARE AT 0700. A/O X4. PLEASANT. COUGH WITH SOB. UP TO 5L/NC. UP WITH STB. SLOWLY TOWARDS POC GOALS.
[2019-02-10 19:45] VITALS: BP 122/58
--- NOTE | 2019-02-11 03:46 | NUR ---
ASSUMED CARE FROM DAY SHIFT PT RESTING IN BED DENIES SOA OR PAIN , TOLERATING BREATHING TREATMENTS , LUNG SOUNDS DIMINISED IN BASES 02 0N AT 4L . COAGULATING BATH MIXER SHOWS NSR - ST 109 , PT UP TO BATHROOM AND TOLERATING ACTIVITY. RESTING WELL THROUGHOUT HOURLY ROUNDS WILL CONTINUE TO MONITOR AND REPORT CHANGES OR ABNORMAL FINDINGS.
[2019-02-11 04:48] VITALS: BP 131/56
[2019-02-11 07:46] VITALS: BP 154/53
[2019-02-11 10:19] VITALS: BP 154/53
--- NOTE | 2019-02-11 12:33 | NUR ---
DISCHARGE NOTE: SW reviewed chart and spoke with nursing and attending physician. Pt is medically stable for discharge home today with HH. Pt was currently on service with [facility] prior to admission. Awaiting final HH orders. SW faxed medication list to [facility] and notified liaison. CHARI met with pt at bedside to discuss discharge plan. Pt to have last dose of IV abx prior to discharge. Pt will be ready for discharge later today. Pt's dtr will provide transportation home. Contact info for [facility] placed in pt's discharge summary. No additional SW needs identified at this time, but is available to assist should needs arise.
--- NOTE | 2019-02-11 15:53 | NUR ---
pt's assessment has done, pt is A&O X3, pt is on o2 3l/min/nc, pt gets up chair for meals, pt's vs and o2sat are stable, pt denies pain , and sob at this time, pt will d/c to home with home haelth today.
== END 2019-02-11 17:10 | disposition home health service (06) | DRG 871 ==
LOC: ER 11:11 → 3W 12:14 → EROBS 12:14 → 3W 16:51
PROVIDERS: Physician Assistant; ADMIT Family Medicine
DX: A41.9 Sepsis, unspecified organism (principal); J18.9 Pneumonia, unspecified organism; J96.21 Acute and chronic respiratory failure with hypoxia; J44.1 Chronic obstructive pulmonary disease with (acute) exacerbation; I50.32 Chronic diastolic (congestive) heart failure; E46 Unspecified protein-calorie malnutrition; J44.0 Chronic obstructive pulmonary disease with (acute) lower respiratory infection; I73.9 Peripheral vascular disease, unspecified; D64.9 Anemia, unspecified; Z96.641 Presence of right artificial hip joint; E78.00 Pure hypercholesterolemia, unspecified; J45.909 Unspecified asthma, uncomplicated; K21.9 Gastro-esophageal reflux disease without esophagitis; F32.9 Major depressive disorder, single episode, unspecified; I25.10 Atherosclerotic heart disease of native coronary artery without angina pectoris; I11.0 Hypertensive heart disease with heart failure; Z95.820 Peripheral vascular angioplasty status with implants and grafts; Z90.49 Acquired absence of other specified parts of digestive tract; Z90.711 Acquired absence of uterus with remaining cervical stump; Z98.42 Cataract extraction status, left eye; Z98.41 Cataract extraction status, right eye; Z88.1 Allergy status to other antibiotic agents; Z88.8 Allergy status to other drugs, medicaments and biological substances; Z87.891 Personal history of nicotine dependence; Z79.82 Long term (current) use of aspirin; Z79.899 Other long term (current) drug therapy; Z68.25 Body mass index [BMI] 25.0-25.9, adult
CPT/HCPCS: 10879

== ENCOUNTER 2019-02-21 12:52 | Emergency (ER) | payer OTHER ==
[~2019-02-21] VITALS: Ht 162.6 cm; Wt 63.5 kg
[2019-02-21] MEDS ORDERED: NORCO 5-325 TA1 EAC1 PO (16:09)
[2019-02-21 16:14] VITALS: BP 141/85
== END 2019-02-21 16:15 | disposition home or self-care (01) ==
LOC: ER 12:52
DX: S32.591A Other specified fracture of right pubis, initial encounter for closed fracture (principal); J44.9 Chronic obstructive pulmonary disease, unspecified; J45.909 Unspecified asthma, uncomplicated; K58.9 Irritable bowel syndrome, unspecified; K21.9 Gastro-esophageal reflux disease without esophagitis; F32.9 Major depressive disorder, single episode, unspecified; I11.0 Hypertensive heart disease with heart failure; E78.00 Pure hypercholesterolemia, unspecified; I50.9 Heart failure, unspecified; Z87.891 Personal history of nicotine dependence; Z88.8 Allergy status to other drugs, medicaments and biological substances; Z90.10 Acquired absence of unspecified breast and nipple; Z91.041 Radiographic dye allergy status; Z88.1 Allergy status to other antibiotic agents; Z90.710 Acquired absence of both cervix and uterus; W18.39XA Other fall on same level, initial encounter; Y92.89 Other specified places as the place of occurrence of the external cause; Y93.89 Activity, other specified; Y99.8 Other external cause status

== ENCOUNTER → 2019-03-18 | Outpatient (CLI) | payer OTHER ==
[~2019-03-18] MED LIST changes: +NORCO 5-325 TA1 EAC1 PO
== END ==
LOC: CAT 09:08
DX: J43.9 Emphysema, unspecified (principal); J84.10 Pulmonary fibrosis, unspecified; R91.8 Other nonspecific abnormal finding of lung field; J98.11 Atelectasis

== ENCOUNTER → 2020-04-24 | Outpatient (CLI) | payer OTHER | LOC: SJCVC 14:21 | PROVIDERS: ATTEND Internal Medicine | DX: R94.31 Abnormal electrocardiogram [ECG] [EKG] (principal); R00.1 Bradycardia, unspecified; I11.0 Hypertensive heart disease with heart failure; I50.32 Chronic diastolic (congestive) heart failure; I25.10 Atherosclerotic heart disease of native coronary artery without angina pectoris; E78.5 Hyperlipidemia, unspecified; I65.23 Occlusion and stenosis of bilateral carotid arteries; J43.9 Emphysema, unspecified ==

== ENCOUNTER 2020-05-17 21:15 | Inpatient (IN) | payer OTHER ==
[~2020-05-17] VITALS: Ht 162.6 cm; Wt 52.6 kg
--- NOTE | ~2020-05-17 | EMS ---
[address] [address] EMS Patient Care Report Name: EARLINE POWELL Room #: DEP RENEA Ardon#: [id number] Admission: 05/17/20 Attend Phys: Discharge: 05/17/20 Date of : 33 Report #: [id number] THIS REPORT FOR: //name// Report Transmitted: 05/17/2020 22:52 EMS Care Summary [facility] MED-ACT Incident [id number] @ 05/17/2020 20:36 Incident Location [address] [place] [address] Patient EARL POWELL Female, 84 Years 1935 Patient Address [address] [place] [address] Patient History Chronic Obstructive Pulmonary Disease (COPD), Chief Complaint difficulty breathing Disposition Transported No Lights/[place] Dispatch Reason Sick Person Transported To [facility] Narrative Dispatched to residence [facility] because her daughter tried to call her multiple times and was unable to reach her. She called EMS to check on her. Pt was seen by EMS and FD this morning and was assisted with her O2 concentrator/tubing malfunction. This morning, pt refused transport. Ro, when EMS and FD made contact with the pt, she was found without her nc on at all. It was dangling over the side of the bed. Pt's room air sats were in the 60's to begin with. Her O2 sat improved greatly once it was placed back on her. [address] [place] [address] EMS Patient Care Report Name: EARLINE POWELL Room #: DEP M.R.#: [id number] Admission: 05/17/20 Attend Phys: Discharge: 05/17/20 Date of : 33 Report #: [id number] Spoke with her daughter who was outside the facility about ro's circumstances. It was decided to transport her to [place] for further evaluation. Pt was assisted to the cot. Transported without incident. Pt became more alert and her O2 sat increased. ER contacted blu. r/r no further orders. Released with report in ER8. Initial Vitals @21:03P: 107,SpO2: 95, @21:08P: 106,R: 20,BP: 152/75,Pain: 0/10,GCS: 15,SpO2: 96,Revised Trauma: 12, @21:00P: 112,R: 20,BP: 187/93,Pain: 0/10,GCS: 15,Temp: 98.4F,Glucose: 103,SpO2: 94,Revised Trauma: 12, Assessments @20:45MENTAL:Confused,Person Oriented,Event Oriented,Time Oriented,Place Oriented,SKIN:Hot,Pale,HEENT:Head/Face: No Abnormalities,Eyes: No Abnormalities,Neck/Airway: No Abnormalities,LUNG SOUNDS:General: No Abnormalities,Left Upper: No Abnormalities,Right Upper: No Abnormalities,Left Lower: No Abnormalities,Right Lower: No Abnormalities,ABDOMEN:General: No Abnormalities,Left Upper: No Abnormalities,Right Upper: No Abnormalities,Left Lower: No Abnormalities,Right Lower: No Abnormalities,PELVIS//GI:Incontinence,EXTREMITIES:Left Arm: No Abnormalities,Right Arm: No Abnormalities,Left Leg: No Abnormalities,Right Leg: No Abnormalities,PULSE:Radial: 2+ Normal,NEURO:No Abnormalities,@20:55MENTAL:No Abnormalities,SKIN:HEENT:LUNG SOUNDS:ABDOMEN:PELVIS//GI:EXTREMITIES:PULSE:NEURO: Impression Acute Respiratory Distress (Dyspnea) Procedures @20:45Oxygen FlowRate: 4 Device: Nasal Cannula (NC) Response: ImprovedSucceeded@20:46Surgical Mask on PatientResponse: Unchanged Timeline 20:36,Call Received 20:36,Dispatched 20:36,Psap Call 20:36,En Route 20:44,On Scene 20:44,At Patient 20:45,Oxygen FlowRate: 4 Device: Nasal Cannula (NC) Response: ImprovedSucceeded, 20:46,Surgical Mask on Patient,Response: Unchanged 21:00,BP: 187/93 M,PULSE: 112,RR: 20 R,SPO2: 94 Ox,ETCO2: ,B,PAIN: 0,GCS: 15, 21:02,Depart Scene [facility] [address] [place] [address] EMS Patient Care Report Name: EARLINE POWELL Room #: DEP RENEA Ardon#: [id number] Admission: 05/17/20 Attend Phys: Discharge: 05/17/20 Date of : 33 Report #: [id number] 21:03,BP: / M,PULSE: 107,RR: R,SPO2: 95 Ox,ETCO2: ,BG: ,PAIN: ,GCS: , 21:08,BP: 152/75 M,PULSE: 106,RR: 20 R,SPO2: 96 Ox,ETCO2: ,BG: ,PAIN: 0,GCS: 15, 21:09,At Destination 21:27,Call Closed Disclaimer v1.1 Copyright 2020 [employer] This EMS Care Summary contains data elements from the applicable legal record (which may be displayed differently). It is designed to provide pertinent information for the following purposes: continuity of care, clinical quality, and state data reporting. The complete legal record is available to ED staff and administrators of the receiving hospital in [employer]'s Patient Tracker. All data is provided "as is."
[2020-05-17 21:16] VITALS: BP 190/68
[2020-05-17 21:54] LABS: ABSOLUTE NEUTROPHILS 11.8 thou/uL (1.4-8.2); BASOPHILS 0.1 % (0.0-2.0); HEMATOCRIT 30.9 % (37.0-47.0); LYMPHOCYTES 1.5 % (24.0-44.0); MCH 27.5 pg (26.0-34.0); MCHC 32.3 g/dL (28.0-37.0); MCV 85.1 fL (80.0-100.0); MONOCYTES 6.5 % (1.0-8.0); PLATELET COUNT 243 thou/uL (150-400); POLYS 91.9 % (36.0-66.0); RBC 3.63 mil/uL (4.20-5.00); RDW 15.8 % (10.5-14.5); WBC 12.9 thou/uL (4.0-11.0)
[2020-05-17] MEDS ORDERED: PREDNISONE 20 M20 M1 (22:00)
[2020-05-17] MEDS ORDERED: CEFDINIR300 MG PO (22:00)
[2020-05-17 22:01] LABS: ANION GAP 8 mmol/L (7-16); BUN 28 mg/dL (7-18); CALCIUM 9.3 mg/dL (8.5-10.1); CHLORIDE 97 mmol/L (98-107); CO2 30 mmol/L (21-32); CREATININE 0.9 mg/dL (0.6-1.0); GLUCOSE 96 mg/dL (74-106); POTASSIUM 3.4 mmol/L (3.5-5.1); SODIUM 135 mmol/L (136-145)
[2020-05-17] MEDS ORDERED: SPIRIVA18 MCG INH (22:01)
[2020-05-17] MEDS ORDERED: ADVAIR 100-501 EACH INH (22:03)
[2020-05-17] MEDS ORDERED: BENTYL 20 MG TA20 M1 PO (22:05)
[2020-05-17] MEDS ORDERED: DIOVAN160 MG PO (22:06)
[2020-05-17] MEDS ORDERED: INDERAL LA120 M1 PO (22:06)
[2020-05-17] MEDS ORDERED: PLAVIX 75 MG TA75 MG PO (22:07)
[2020-05-17] MEDS ORDERED: PRAVACHOL40 MG PO (22:07)
[2020-05-17] MEDS ORDERED: POTASSIUM CHLOR8 ME2 PO (22:07)
[2020-05-17] MEDS ORDERED: PRESERVISION A1 EAC2 PO (22:07)
[2020-05-17 22:11] LABS: ALBUMIN 2.2 g/dL (3.4-5.0); DIRECT BILIRUBIN 0.2 mg/dL (<0.1-0.2); SGOT 59 U/L (15-37); SGPT 42 U/L (30-65); TOTAL BILIRUBIN 0.5 mg/dL (0.2-1.0); TOTAL PROTEIN 6.2 g/dL (6.4-8.2); TROPONIN-I <0.06 ng/mL (<0.06)
[2020-05-17 22:16] LABS: URINE BILIRUBIN NEGATIVE (Negative); URINE BLOOD NEGATIVE (Negative); URINE CLARITY CLEAR; URINE COLOR YELLOW; URINE GLUCOSE-RANDOM* NEGATIVE (Negative); URINE KETONES NEGATIVE (Negative); URINE LEUKOCYTES-REFLEX NEGATIVE (Negative); URINE NITRITE-REFLEX NEGATIVE (Negative); URINE PROTEIN (DIPSTICK) 1+ (Negative); URINE SPECIFIC GRAVITY 1.015 (1.005-1.035); URINE UROBILINOGEN 0.2 E.U./dl (0.2-1.0)
[2020-05-17 22:44] LABS: BACTERIA-REFLEX 1-9 Few /HPF (None Seen); CASTS None Seen /LPF (None Seen); CRYSTALS None Seen /LPF (None Seen); MUCUS 4-6 Moderate strn/LPF (None Seen); SQUAMOUS 4-10 Moderate /LPF (0-3); URINE RBC 0-2 Rare /HPF (0-2); URINE WBC-REFLEX 0-5 Rare /HPF (0-5)
[2020-05-17 22:49] VITALS: BP 144/54
[2020-05-17 23:41] VITALS: BP 144/54
[2020-05-18 00:10] VITALS: BP 156/55
--- NOTE | 2020-05-18 01:32 | NUR ---
PT ARRIVED FROM ER THIS SHIFT. ADMISSION DONE AND PT ORIENTED TO THE UNIT. ON 3L OF O2 AND 92%. BASELINE 3L AT HOME. PT UP WITH ASSIST TO THE BSC. IV INTACT AND FLUIDS INFUSING. DENIES PAIN, N/V. NIGHT TIME SNACK PROVIDED WITH PO FLUID. PT STATED TESTED POSITIVE FOR COVID AT HOME. FALL PREC IN PLACE AND CALL LIGHT AT REACH WILL CONT WITH POC TILL EOS.
[2020-05-18 03:59] VITALS: BP 153/52
[2020-05-18 06:03] LABS: HEMATOCRIT 26.3 % (37.0-47.0); HEMOGLOBIN 8.7 gm/dL (12.0-15.0); MCH 28.2 pg (26.0-34.0); MCHC 33.2 g/dL (28.0-37.0); MCV 85.1 fL (80.0-100.0); RBC 3.1 mil/uL (4.20-5.00); RDW 15.8 % (10.5-14.5); WBC 10.5 thou/uL (4.0-11.0)
[2020-05-18 06:14] LABS: CALCIUM 8.3 mg/dL (8.5-10.1); CREATININE 0.8 mg/dL (0.6-1.0); POTASSIUM 3.4 mmol/L (3.5-5.1)
[2020-05-18 07:32] VITALS: BP 141/54
[2020-05-18 10:55] VITALS: BP 128/52
--- NOTE | 2020-05-18 10:56 | NUR ---
Patient admitted with SOA/Covid positive Dec 4 per dtr. Attempted to call patient in room and no answer. Sp with dtr. Patient resides alone in independent apt at [facility]. She uses a walker for ambulation. She has home oxygen via [employer] at 2 liters. Spouse [address] Wayne. Dtr reports patient very stubborn. She does not want patient to know but she believes she needs skilled rehab prior to returning home. Dtr reports patient on wait list for [facility]. She would prefer skilled rehab at [facility]. Sp with admission they are accepting COVID positive 20 days from first test. They do not accept [facility] for skilled. Updated dtr, Discussed COVID accepting facility options. Dtr interested in [facility]. Referral for review. Sp with admissions.
[2020-05-18 11:23] LABS: ALBUMIN 1.8 g/dL (3.4-5.0); CALCIUM 8.7 mg/dL (8.5-10.1); CREATININE 0.9 mg/dL (0.6-1.0); DIRECT BILIRUBIN 0.1 mg/dL (<0.1-0.2); PHOSPHORUS 3.2 mg/dL (2.5-4.9); POTASSIUM 3.6 mmol/L (3.5-5.1); TOTAL BILIRUBIN 0.4 mg/dL (0.2-1.0); TOTAL PROTEIN 5.6 g/dL (6.4-8.2)
--- NOTE | 2020-05-18 14:42 | NUR ---
FAXED REFERRAL TO [facility] RECEIVED CONFIRMATION AND LEFT MSG WITH KOTA IN ADM. STILL WTG ON THERAPY NOTES WILL FAX ONCE AVAILABLE TO FACILITY. WAS NOTIFIED BY TIFFANY FROM [facility] THAT DR ROSENBERG'S OFFICE HAS FAXED HER A REFERRAL PRIOR TO PT'S ADMISSION. DP TO FOLLOW.
--- NOTE | 2020-05-18 15:47 | NUR ---
PT A&OX4, VSS, DENIES PAIN. PATIENT 1X ASSIST TO BATHROOM. PT ON 4L O2 NC. PATIENT HAS NON PRODUCTIVE COUGH. ASSESSMENT COMPLETED, MEDS GIVEN ORDERED. NO SIGNS OF DISTRESS. WILL CONTINUE TO MONITOR.
[2020-05-18 16:21] VITALS: BP 133/48
[2020-05-18] MEDS ORDERED: ZOLOFT 50 MG TA50 M1 PO (19:44)
[2020-05-18 19:46] VITALS: BP 137/51
--- NOTE | 2020-05-18 22:32 | NUR ---
ASSUMED PT CARE AROUND 1900. SPOKE WITH PT'S DTR (CECILIA) AT 1945. SHE EXPLAINED THAT SOMETIMES HER MOTHER GETS ANXIOUS AND CONFUSED WHEN NOT IN HER NORMAL ENVIRONMENT. PT WAS ANXIOUS UPON INITIAL ASSESSMENT, ASKING FOR HELP FINDING HER PURSE. NO PURSE WAS FOUND IN THE ROOM. PT IS ABLE TO ANSWER ORIENTATION QUESTIONS, BUT IS VERY FORGETFUL. MILDLY SOA W/ EXERTION. FALL PRECAUTIONS IN PLACE. REPORT GIVEN TO ONCOMING NURSE AT 2200.
[2020-05-19 03:16] VITALS: BP 142/51
[2020-05-19 04:36] LABS: BASOPHILS 0.3 % (0.0-2.0); HEMATOCRIT 26.3 % (37.0-47.0); HEMOGLOBIN 8.5 gm/dL (12.0-15.0); LYMPHOCYTES 0.9 % (24.0-44.0); MCH 27.7 pg (26.0-34.0); MCHC 32.4 g/dL (28.0-37.0); MCV 85.4 fL (80.0-100.0); MONOCYTES 4.7 % (1.0-8.0); PLATELET COUNT 246 thou/uL (150-400); POLYS 94.1 % (36.0-66.0); RBC 3.08 mil/uL (4.20-5.00); RDW 15.8 % (10.5-14.5); WBC 10.6 thou/uL (4.0-11.0)
[2020-05-19 04:38] LABS: INR 1.1
[2020-05-19 04:43] LABS: FIBRINOGEN 454.2 mg/dL (210-360)
[2020-05-19 04:47] LABS: ALBUMIN 1.8 g/dL (3.4-5.0); CALCIUM 8.5 mg/dL (8.5-10.1); CREATININE 0.9 mg/dL (0.6-1.0); DIRECT BILIRUBIN 0.1 mg/dL (<0.1-0.2); PHOSPHORUS 3.1 mg/dL (2.5-4.9); POTASSIUM 3.4 mmol/L (3.5-5.1); TOTAL BILIRUBIN 0.3 mg/dL (0.2-1.0); TOTAL PROTEIN 5.5 g/dL (6.4-8.2)
--- NOTE | 2020-05-19 05:05 | NUR ---
ASSESSMENTS CHARTED, MEDS CHARTED GIVEN. 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 PATIENT CONFUSED DURING SHIFT, WANTING TO GET UP AND CHECK THE CLOSET LOOKING FOR BRIEFS. NOT UNDERSTANDING SHE IS IS NOT AT HOME. FREQUENT REDIRECTION NEEDED. LUNGS DIMINISHED ON 5 LITERS NC. USUALLY ON 2-3 LITERS AT HOME. STRESS INCONTINENT. UP WITH WALKER, SKIN IS OK. URINE SAMPLE OBTAINED. FALL PRECAUTIONS IN PLACE DURING SHIFT. PATIENT PULLED OUT ORIGINAL IV, NEW IV PLACED IN RIGHT HAND.
[2020-05-19 08:12] VITALS: BP 152/52
[2020-05-19 11:54] VITALS: BP 152/71
[2020-05-19 15:30] VITALS: BP 154/51
[2020-05-19 19:31] VITALS: BP 168/60
[2020-05-20] VITALS (9 sets, daily range): BP systolic 146–199; BP diastolic 58–76
[2020-05-20 04:52] LABS: ALBUMIN 1.6 g/dL (3.4-5.0); ANION GAP 10 mmol/L (7-16); BUN 32 mg/dL (7-18); CALCIUM 8.2 mg/dL (8.5-10.1); CHLORIDE 105 mmol/L (98-107); CO2 25 mmol/L (21-32); CREATININE 0.8 mg/dL (0.6-1.0); DIRECT BILIRUBIN < 0.1 mg/dL (<0.1-0.2); GLUCOSE 137 mg/dL (74-106); PHOSPHORUS 2.5 mg/dL (2.5-4.9); POTASSIUM 4.1 mmol/L (3.5-5.1); SGOT 54 U/L (15-37); SGPT 18 U/L (30-65); SODIUM 140 mmol/L (136-145); TOTAL BILIRUBIN 0.3 mg/dL (0.2-1.0); TOTAL PROTEIN 4.6 g/dL (6.4-8.2)
[2020-05-20 04:53] LABS: HEMATOCRIT 22.9 % (37.0-47.0); HEMOGLOBIN 7.3 gm/dL (12.0-15.0); MCH 27.2 pg (26.0-34.0); MCHC 31.8 g/dL (28.0-37.0); MCV 85.3 fL (80.0-100.0); RBC 2.68 mil/uL (4.20-5.00); RDW 16.1 % (10.5-14.5)
--- NOTE | 2020-05-20 21:29 | NUR ---
PT CONFUSED . A&0 X1. ORIENTED PT TO CORRECT PLACE AND DATE. SHE IS FORGETFUL .BED ALARM ON. SIDERAILS UP. ASSISTED TO BSC X2 . NO VOID. BLADDER SCANNED PT. BLADDER VOLUME 9 ML. AND O ML. BP ELEVATED AFTER LISINOPRIL IN 190S. ATTEMPTING TO NOTIFY DR ROSENBERG. NO CALL BACK YET. C/O SOA ON 7LNC SAT 75% WHEN SHE PULLED OFFO2. PLACED O2 BACK O SAT UP TO 94-99% ON 7LNC AT REST. ATTEMPTED TO TAKE OSS NAIL DANISH WITH REMOVER BUT ALL 20 NAILS HAVE GEL COATING ON THEM. LUNGS HAVE CRACKLES AND WHEEZES MOST NOTABLY LEFT UPPER LUNG. RR 24 WILL CONTINUE TO MONITOR FOR INCREASED DISTRESS.
--- NOTE | 2020-05-20 23:31 | NUR ---
BP STILL ELEVATED DESPITE LISINOPRIL 20. CALLED [facility] ANSWERING [facility] X2. WAITING FOR CALL BACK.
[2020-05-21] VITALS (8 sets, daily range): BP systolic 127–206; BP diastolic 48–94
--- NOTE | 2020-05-21 01:21 | NUR ---
ANSWERING SERVICE CALLED DR ROSENBERG DIRECTLY. . ONETIME ORDER FOR NORVASC 5 MG GIVEN FOR BP IN THE 190'S. SEROQUEL GIVEN FOR AGIATION. NOTIFIED DR ROSENBERG PT C/O SOA ON 7LNC. PT WATCHING TV PRESENTLY. .
--- NOTE | 2020-05-21 04:12 | NUR ---
PT SLEEPING QUIETLY. BP WNL. SAT 96% RATE 20-22 ON 7LNC. TEMP 95.4. ADDED TO WARM BLANKETS AND RAISED ROOM TEMPERATURE.
[2020-05-21 06:26] LABS: HEMATOCRIT 27.8 % (37.0-47.0); HEMOGLOBIN 8.7 gm/dL (12.0-15.0); MCH 26.9 pg (26.0-34.0); MCHC 31.3 g/dL (28.0-37.0); MCV 85.9 fL (80.0-100.0); RBC 3.24 mil/uL (4.20-5.00); RDW 16.7 % (10.5-14.5); WBC 17.2 thou/uL (4.0-11.0)
[2020-05-21 06:47] LABS: ALBUMIN 1.9 g/dL (3.4-5.0); ANION GAP 10 mmol/L (7-16); BUN 34 mg/dL (7-18); CALCIUM 8.6 mg/dL (8.5-10.1); CHLORIDE 106 mmol/L (98-107); CO2 24 mmol/L (21-32); CREATININE 0.8 mg/dL (0.6-1.0); DIRECT BILIRUBIN < 0.1 mg/dL (<0.1-0.2); GLUCOSE 128 mg/dL (74-106); PHOSPHORUS 2.5 mg/dL (2.5-4.9); SGOT 39 U/L (15-37); SGPT 19 U/L (30-65); SODIUM 140 mmol/L (136-145); TOTAL BILIRUBIN 0.5 mg/dL (0.2-1.0); TOTAL PROTEIN 5.5 g/dL (6.4-8.2)
--- NOTE | 2020-05-21 14:48 | NUR ---
CHARI reviewed chart and spoke with nursing and attending physician. Pt remains in Enhanced Isolation due to COVID-19. Pt is afebrile and on 5L of O2. Pt is on IV abx and IV steroids. Completing course of Remdesivir. Therapy evals ordered today. CHARI spoke with pt's dtr, Nilda, via phone to discuss discharge plan. Nilda requests SNF referral to be sent to [facility]. CHARI spoke with Princess in admissions at [facility] and requested referral to be forwarded to the location. Awaiting input from [facility]. CHARI is following to assist as needed with discharge planning.
--- NOTE | 2020-05-21 16:19 | NUR ---
ASSUMED PATIENT CARE AT 0700. VERY CONFUSED. IMPULSIVE. WILL KEEP MONITOR.
[2020-05-22 05:26] VITALS: BP 200/87
[2020-05-22 06:31] LABS: ALBUMIN 2.1 g/dL (3.4-5.0); CALCIUM 8.5 mg/dL (8.5-10.1); CREATININE 0.9 mg/dL (0.6-1.0); DIRECT BILIRUBIN 0.2 mg/dL (<0.1-0.2); PHOSPHORUS 3.2 mg/dL (2.5-4.9); POTASSIUM 4.3 mmol/L (3.5-5.1); TOTAL BILIRUBIN 0.4 mg/dL (0.2-1.0); TOTAL PROTEIN 5.5 g/dL (6.4-8.2)
[2020-05-22 07:14] VITALS: BP 186/65
--- NOTE | 2020-05-22 07:21 | NUR ---
CONFUSED.O2 L NC.UTILITY WORKER [place] AWARE.BP ELEVATED THIS AM.DR ROSENBERG WAS CALLED.AMLODIPINE GIVEN.MONITOR SHOWS SINUS ARHYTHMIA.POC CONTINUED.
[2020-05-22 11:03] VITALS: BP 181/105
--- NOTE | 2020-05-22 15:09 | NUR ---
CHARI reviewed chart and spoke with nursing. Pt remains in Enhanced Isolation due to COVID-19. Pt is afebrile and requiring 15-17L of O2 via NRB mask. Pt is on IV abx and IV steroids. Pt given dose of IV lasix earlier today. Pt is completing course of Remdesivir. [facility] SNF does not currently have any beds available. CHARI spoke with pt's dtr, iNlda, via phone to provide update. Pt's dtr is aware of pt's change in condition and states that she acknowledges that pt may not progress to the point of being able to go to a SNF. Pt's dtr requests to be notified with any change in condition. CHARI updated nursing. CHARI left voice message for Carmela at [facility] to provide update. CHARI is following to assist as needed with discharge planning.
[2020-05-22 15:16] VITALS: BP 145/68
--- NOTE | 2020-05-22 19:40 | NUR ---
PATIENT HAD LASIX THIS AM AND HAS RESPONDED QUITE WELL. BP IMPROVED AND BREATHING IMPROVED. STOPPED FLUIDS. SHE IS MORE ALERT ORIENTED AT THIS TIME. WILL CONT WITH PLAN OF CARE.
[2020-05-22 20:13] VITALS: BP 149/111
--- NOTE | 2020-05-22 22:17 | NUR ---
PT RESTING IN BED. O2 NC 10L. LUNGS COARSE. PT IS SOA WITH REPOSITIONING. PT HAS FEMALE EXT CATH INTACT. IVF INTACT. BED ALARM ON. PT ALERT TO SELF SITUATION, NOT TIME. PT STATED SHE THOUGHT IT WAS MORNING.
[2020-05-23 03:42] VITALS: BP 159/62
[2020-05-23 06:11] LABS: ABSOLUTE NEUTROPHILS 14.2 thou/uL (1.4-8.2); BASOPHILS 0.5 % (0.0-2.0); HEMATOCRIT 24.6 % (37.0-47.0); HEMOGLOBIN 7.9 gm/dL (12.0-15.0); LYMPHOCYTES 2.6 % (24.0-44.0); MCH 27.7 pg (26.0-34.0); MCHC 32.3 g/dL (28.0-37.0); MCV 85.9 fL (80.0-100.0); MONOCYTES 1.7 % (1.0-8.0); PLATELET COUNT 420 thou/uL (150-400); POLYS 95.2 % (36.0-66.0); RBC 2.87 mil/uL (4.20-5.00); RDW 16.4 % (10.5-14.5)
[2020-05-23 06:55] LABS: ALBUMIN 2.1 g/dL (3.4-5.0); CALCIUM 8.3 mg/dL (8.5-10.1); CREATININE 0.8 mg/dL (0.6-1.0); POTASSIUM 4.5 mmol/L (3.5-5.1); TOTAL BILIRUBIN 0.5 mg/dL (0.2-1.0)
[2020-05-23 07:14] VITALS: BP 155/52
[2020-05-23 07:22] LABS: FIBRINOGEN 305.7 mg/dL (210-360); INR 1.1; PROTIME 11.4 Seconds (9.3-11.4)
[2020-05-23 08:56] LABS: HEMATOCRIT 29.7 % (37.0-47.0); HEMOGLOBIN 9.4 gm/dL (12.0-15.0); MCH 26.9 pg (26.0-34.0); MCHC 31.5 g/dL (28.0-37.0); MCV 85.4 fL (80.0-100.0); RBC 3.48 mil/uL (4.20-5.00); RDW 16.4 % (10.5-14.5); WBC 18.6 thou/uL (4.0-11.0)
[2020-05-23 11:07] VITALS: BP 122/43
[2020-05-23 15:16] VITALS: BP 158/45
--- NOTE | 2020-05-23 15:41 | NUR ---
CHARI reviewed chart and spoke with nursing and attending physician. Pt remains in Enhanced Isolation due to COVID-19. Pt is afebrile and on 10L of O2. Pt is on IV abx, Iv steroids and IV Lasix. Pt has completed course of Remdesivir and Ivermectin. Per attending physician, pt may be ready for discharge to SNF over the weekend. account planner to fax clinical/therapy updates to [facility] for review. Will need insurance authorization for SNF level of care. CHARI is following to assist as needed with discharge planning.
--- NOTE | 2020-05-23 16:53 | NUR ---
FAXED CLINICAL UPDATE TO [facility] RECEIVED CONFIRMATION AND LEFT MSG WITH VERONICA IN ADM. DP TO FOLLOW.
--- NOTE | 2020-05-23 17:08 | NUR ---
PATIENT HAS BEEN UP ON THE CHAIR AND BACK TO BED. PLEASANT WITH CARE. NO COMPLAIN OF PAIN. ADEQUATE URINARY OUTPUT. WILL CONT WITH PLAN OF CARE.
[2020-05-23 19:35] VITALS: BP 179/51
--- NOTE | 2020-05-24 01:28 | NUR ---
PT CARE ASSIST WITH PT IN BED WATCHING TV.PT IS A/O X3. AND FORGETFUL.PT IS ON 10L OF O2 PER NC AND VSS.PT APPEAR TO BE IN NO ACUTE DISTRESS.DAUGHTER CALLED TO FIND OUT HOW PT WAS DOING AND PT INFORMED.WILL CONTINUE TO MONITOR
[2020-05-24 03:22] VITALS: BP 144/44
[2020-05-24 07:07] VITALS: BP 156/66
[2020-05-24 11:14] LABS: CALCIUM 8.4 mg/dL (8.5-10.1); CREATININE 0.7 mg/dL (0.6-1.0); POTASSIUM 4.3 mmol/L (3.5-5.1)
[2020-05-24 11:30] VITALS: BP 148/53
[2020-05-24 15:04] VITALS: BP 135/44
--- NOTE | 2020-05-24 16:37 | NUR ---
PT CARE ASSUMED AT 0700, PT ALERT AND ORIENTED X4, FORGETFUL AT TIMES. PT DENIES CHEST PAIN, NAUSEA AND VOMITTING. PT IS ON 10L OF OXYGEN, SOB WITH ACTIVITY. UP IN THE CHAIR, FALL PRECAUTIONS IN PLACE. PT PROGRESSING TOWARDS CARE SLOWLY.
--- NOTE | 2020-05-24 16:57 | NUR ---
RECEIVED CALL FROM VERONICA FROM [facility] THAT REFERRAL HAS BEEN DENIED DUE TO INCREASE 02, CO-MORBIDITIES, TOO CLINICALLY COMPLEX NOTIFIED CHARI (DEBBI). DP TO FOLLOW.
--- NOTE | 2020-05-24 17:26 | NUR ---
Rec message from [facility] who reports patient is not accepted due to increase in oxygen. She reports patient usu are readmitted to hospital too soon. Updated Eileen not planning for dc today and aware of increase oxygen need therefor not stable for discharge. [facility] reports they will cont to follow.
[2020-05-24 20:30] VITALS: BP 166/66
[2020-05-25 04:42] VITALS: BP 155/64
--- NOTE | 2020-05-25 05:25 | NUR ---
comfortable with her breathing this am. continues on 13 liters tonight.
[2020-05-25 09:23] VITALS: BP 152/73
[2020-05-25 10:09] LABS: HEMATOCRIT 28.3 % (37.0-47.0); HEMOGLOBIN 8.8 gm/dL (12.0-15.0); MCH 27.3 pg (26.0-34.0); MCHC 31.2 g/dL (28.0-37.0); MCV 87.3 fL (80.0-100.0); RBC 3.24 mil/uL (4.20-5.00); RDW 17.2 % (10.5-14.5)
[2020-05-25 10:26] LABS: CALCIUM 8.8 mg/dL (8.5-10.1); CREATININE 0.8 mg/dL (0.6-1.0)
[2020-05-25 12:09] VITALS: BP 125/47
--- NOTE | 2020-05-25 13:28 | NUR ---
SW reviewed chart and spoke with nursing. Pt remains in Enhanced Isolation due to COVID-19. Pt is afebrile and requiring up to 15L of O2. Pt is on Iv abx and IV steroids. Pt completing course of Ivermectin. Pt to have IV lasix. No weekend discharge planned. SW spoke with pt's dtrNilda, via phone to provide update. Questions answered regarding plan of care and possible discharge plans. Pt's dtr had questions regarding plans if pt's O2 needs remain high. SW discussed LTAC level of care if needed. Pt's dtr verbalized understanding. SW is following to assist as needed with discharge planning.
[2020-05-25 14:33] LABS: URINE BILIRUBIN NEGATIVE (Negative); URINE BLOOD 1+ (Negative); URINE CLARITY CLEAR; URINE COLOR YELLOW; URINE GLUCOSE-RANDOM* NEGATIVE (Negative); URINE KETONES NEGATIVE (Negative); URINE LEUKOCYTES-REFLEX NEGATIVE (Negative); URINE NITRITE-REFLEX NEGATIVE (Negative); URINE PROTEIN (DIPSTICK) NEGATIVE (Negative); URINE SPECIFIC GRAVITY 1.015 (1.005-1.035); URINE UROBILINOGEN 0.2 E.U./dl (0.2-1.0)
[2020-05-25 14:50] LABS: BACTERIA-REFLEX 1-9 Few /HPF (None Seen); CASTS None Seen /LPF (None Seen); CRYSTALS None Seen /LPF (None Seen); SQUAMOUS 0-3 Few /LPF (0-3); URINE RBC 3-10 Few /HPF (0-2); URINE WBC-REFLEX None Seen /HPF (0-5)
[2020-05-25 17:01] VITALS: BP 154/48
--- NOTE | 2020-05-25 17:53 | NUR ---
CARE ASSUMED AT 0700, ALERT AND ORIENTED X4, FORGETFUL AT TIMES. DENIES ANY PAIN, NAUSEA AND VOMITTING. UPON START OF SHIFT, PT WAS ON 15L OF OXYGEN, NOW ON 7L, TOLERATING IT WELL. EPPS CATHETER INSERTED PER DR. ROSALES ORDER. FOELY PATENT AND SECURED. FALL PRECAUTIONS IN PLACE. PT PROGRESSING TOWARDS CARE. WILL CONTINUE TO MONITOR.
[2020-05-25 19:46] VITALS: BP 143/41
--- NOTE | 2020-05-25 22:04 | NUR ---
PT ALERT CONFUSED TO DATE AND TIME , PLACE HX DEMENTIA. VSS AFEBRILE. UNLABORED ON 7LNC. NO C/O PAIN. NO S/S DISTRESS. REINSTRUCTED ON FALL PRECAUTIONS.
[2020-05-25 23:04] VITALS: BP 158/61
[2020-05-26 02:42] VITALS: BP 171/62
[2020-05-26 04:42] LABS: CALCIUM 8.6 mg/dL (8.5-10.1); CREATININE 0.8 mg/dL (0.6-1.0); POTASSIUM 4.4 mmol/L (3.5-5.1)
[2020-05-26 04:44] LABS: HEMATOCRIT 23.9 % (37.0-47.0); HEMOGLOBIN 7.5 gm/dL (12.0-15.0); MCH 27.3 pg (26.0-34.0); MCHC 31.3 g/dL (28.0-37.0); MCV 87.3 fL (80.0-100.0); RBC 2.74 mil/uL (4.20-5.00); RDW 16.8 % (10.5-14.5); WBC 16.3 thou/uL (4.0-11.0)
[2020-05-26 05:07] LABS: PLATELET COUNT 342 thou/uL (150-400)
--- NOTE | 2020-05-26 05:46 | NUR ---
PT RESTING QUIETLY, BP MODERATELY ELEVATED. O2 SAT 96% ON 7LNC. LUNGS SOUND DIMINISHED BUT UNLABORED ON 7LNC. PROGRESSING SLOWLY TOWARDS D/C GOALS.
[2020-05-26 06:42] LABS: ABSOLUTE NEUTROPHILS 13.9 thou/uL (1.4-8.2); METAMYELOCYTES 5 %
[2020-05-26 06:49] LABS: ANISOCYTOSIS 1+
[2020-05-26 09:09] VITALS: BP 148/87
[2020-05-26 09:10] VITALS: BP 144/93
[2020-05-26 12:40] VITALS: BP 140/57
--- NOTE | 2020-05-26 15:28 | NUR ---
CARE ASSUMED AT 0700, ALERT AND ORIENTED X4, FORGETFUL ATIMES. PT DENIES CHEST PAIN, AND NAUSEA. ON 5L OF OXYGEN, NO SIGNS OF DISTRESS NOTED. EPPS IN PLACE, PATENT AND SECURED. FALL PRECAUTIONS IN PLACE. WILL CONTINUE TO MONITOR.
[2020-05-26 16:32] VITALS: BP 150/59
[2020-05-26 20:24] VITALS: BP 142/51
--- NOTE | 2020-05-26 22:44 | NUR ---
PT ALERT AND ORIENTED X1. FORGETFUL TO PLACE AND DATE MTH YR ETC. PLEASANT AND COOPERATIVE. BED ALARM IS ON. CALL LIGHT IN REACH. PT IS RESTING QUIETLY ON 5LNC. 98%SAT. NO S/S DISTRESS.
[2020-05-27 04:23] VITALS: BP 140/33
--- NOTE | 2020-05-27 04:49 | NUR ---
PT PROGRESSING SLOWLY TOWARDS D/C GOALS. O2 ONLNC. BS DIMINSHED AND UNLABORED ON 4L. NO C/O PAIN. NO SOA. BED DOWN. CALL LIGHTIN REACH. ALARM ON. PT HAS BEEN MORE ALERT. NO S/S DISRESS.
[2020-05-27 07:40] VITALS: BP 126/39
[2020-05-27 11:10] VITALS: BP 130/30
[2020-05-27 14:11] VITALS: BP 137/45
[2020-05-27 15:29] VITALS: BP 123/51
--- NOTE | 2020-05-27 17:05 | NUR ---
ASSUMMED PT CARE AT APPROXIMATELY 0700. PT A&O X3. FORGETFUL AT TIMES. ASSESSMENT CHARTED. FALL PRECAUTIONS IN PLACE. PT DENIES HAVING CHEST PAIN. PT DENIES HAVING ACUTE PAIN. PT DENIES HAVING SOB. VITAL SIGNS STABLE. PT COMFORTABLE IN BED. PT DENIES HAVING FURTHER CONCERNS.
[2020-05-27 20:14] VITALS: BP 148/58
[2020-05-28 05:38] VITALS: BP 135/49
--- NOTE | 2020-05-28 05:39 | NUR ---
ASSUMED CARE OF PATIENT AT 1900. VSS, AFEBRILE. DENIES PAIN, SOA OR N/V. SLEPT WELL THROUGH THE NIGHT. PROGRESSING TOWARDS POC GOALS.
[2020-05-28 07:48] VITALS: BP 128/46
--- NOTE | 2020-05-28 07:53 | EKG ---
[place] [address] [facility] [address] ELECTROCARDIOGRAM REPORT Name: EARLINE POWELL Room #: 358-P ADM IN M.R.#: [id number] Admission: 05/17/20 Attend Phys: Lei Wayne MD Discharge: Date of : 33 Report #: [id number] [facility] ED Test Date: 2020-05-17 Test Time: 21:29:34 Pat Name: EARLINE POWELL Department: Room: 358 Gender: F Animal Assisted Therapist: JCADELINE : 1935 Requested By: Matilda Johns Order Number: [id number] MD: Pb Echeverria Measurements Intervals [place] Rate: 101 P: 89 ND: 126 QRS: 12 QRSD: 93 T: 82 QT: 337 QTc: 437 Interpretive Statements Sinus tachycardia Atrial premature complexes Probable left atrial enlargement Probable left ventricular hypertrophy Compared to ECG 02/09/2019 11:49:46 Atrial premature complex(es) now present Sinus rhythm no longer present Electronically Signed On 05-18-2020 15:57:05 ACCOUNT SERVICE ASSOCIATE by Pb Echeverria [email or web address] <ELECTRONICALLY SIGNED> By: Pb Echeverria MD, [facility] 05/18/20 1557 28 28 Pb Echeverria MD, [facility] /EPI
[2020-05-28 11:34] VITALS: BP 131/53
[2020-05-28 15:51] VITALS: BP 117/58
--- NOTE | 2020-05-28 16:22 | NUR ---
CHARI reviewed chart and spoke with nursing and attending physician. Pt remains in Enhanced Isolation due to COVID-19. Pt is afebrile and requiring 4L of O2. Pt is on IV abx and IV steroids. Discharge to SNF is anticipated in 1-2 days. tool and production planner faxed clinical/therapy updates to [facility] for review. CHARI spoke with Carmela in admissions, who states they are able to accept pt from a clinical standpoint. [facility] will need to get a prior auth for pt to be admitted. CHARI spoke with pt's dtr, Nilda, via phone to provide update and discuss discharge plan. Nilda is aware and agreeable with plan and will bring clothes to the hospital for pt tomorrow. CHARI placed call to pt's room. No answer. CHARI updated attending physician. CHARI is following to assist as needed with discharge planning.
--- NOTE | 2020-05-28 16:57 | NUR ---
FAXED CLINICAL UPDATE TO [facility] SPOKE WITH VERONICA IN ADM SHE RECEIVED UPDATE.
[2020-05-28 19:33] VITALS: BP 126/43
--- NOTE | 2020-05-28 22:24 | NUR ---
PT ALERT AND ORIENTED X1. FORGETFUL TO TIME AND PLACE. SHE IS COOPERATIVE.
--- NOTE | 2020-05-28 22:41 | NUR ---
PT ALERT AND ORIENTED X1. SHE IS CONFUSED TO DATE, TIME, AND PLACE. SHE IS PLEASNTLY CONFUSED AND COOPERATIVE. VSS SATS WNL ON 2LNC. NOTIFIED DR ROSENBERG AT START OF SHIFT LG BRUISE NOTED LEFT UPPER ARM DOWN TO LEFT FA AND HARD DISTENDED VEIN NOTED AT LEFT AC AREA POSSIBLY FROM OLD PREVIOUS VENIPUNCTURE. AM LABS ORDERED. HELD LOVENOX X1 UNTIL DR ROSENBERG CAN SEE PT IN AM. NO C/O PAIN. NO OTHER S/S DISTRESS PRESENTLY.
[2020-05-29 03:26] VITALS: BP 148/56
[2020-05-29 03:39] LABS: HEMATOCRIT 22.7 % (37.0-47.0); HEMOGLOBIN 7.3 gm/dL (12.0-15.0); MCH 28.1 pg (26.0-34.0); MCHC 32.1 g/dL (28.0-37.0); MCV 87.4 fL (80.0-100.0); RBC 2.6 mil/uL (4.20-5.00); RDW 16.4 % (10.5-14.5); WBC 14.6 thou/uL (4.0-11.0)
[2020-05-29 03:47] LABS: ANION GAP < 0 mmol/L (7-16); BUN 41 mg/dL (7-18); CALCIUM 8.7 mg/dL (8.5-10.1); CHLORIDE 95 mmol/L (98-107); CO2 42 mmol/L (21-32); CREATININE 0.8 mg/dL (0.6-1.0); GLUCOSE 79 mg/dL (74-106); POTASSIUM 4.1 mmol/L (3.5-5.1); SODIUM 136 mmol/L (136-145)
[2020-05-29] MEDS ORDERED: ENOXAPARIN40 MG/0.1 SUBQ (06:25)
[2020-05-29] MEDS ORDERED: LASIX 40 MG TAB40 M1 PO (06:26)
[2020-05-29] MEDS ORDERED: ZINC SULFATE 2220 MG PO (06:26)
[2020-05-29] MEDS ORDERED: DEPAKOTE500 MG PO (06:26)
[2020-05-29] MEDS ORDERED: PEPCID20 MG PO (06:27)
[2020-05-29] MEDS ORDERED: ACEROLA C500 MG PO (06:28)
--- NOTE | 2020-05-29 06:32 | NUR ---
PT PROGRESSING SLOWLY TOWARDS D/C GOALS VSS. SATS WNL ON 3LNC. NO S/S DISTRESS. RESTING QUIETLY.
[2020-05-29 07:16] VITALS: BP 122/48
--- NOTE | 2020-05-29 10:58 | NUR ---
DISCHARGE NOTE: CHARI reviewed chart and spoke with nursing and attending physician. Pt is medically stable for discharge to [facility] today. CHARI contacted Carmela in admissions who state they did obtain insurance auth and can accept pt today. CHARI faxed finalized discharge orders/summary to the facility and confirmed info was received. W/c van transportation is scheduled for [phone] today per facility's arrangements. CHARI spoke with pt's dtr, Nilda, via phone to provide update and discuss discharge plan. Nilda is agreeable and will bring some clothes to [facility] for pt. Nilda will meet pt outside with the w/c van to provide clothes/belongings. CHARI notified Carmela at [facility] to let the w/c spike driver know to look for pt's dtr. Chart copy requested. Nursing provided with number to call report. CHARI updated [facility] lia[facility] regarding pt's discharge disposition. No additional SW needs identified at this time, but is available to assist should needs arise.
[2020-05-29 11:07] VITALS: BP 122/43
== END 2020-05-29 12:50 | DRG 871 ==
LOC: ER 21:15 → 3W 22:15 → ER 23:42 → 3W 05-29 12:50
PROVIDERS: Emergency Medicine; Specialist; ADMIT Family Medicine; ATTEND Family Medicine
PROC: XW033E5 Introduction of Remdesivir Anti-infective into Peripheral Vein, Percutaneous Approach, New Technology Group 5 (ICD-10-PCS; principal; 2020-05-20)
DX: A41.9 Sepsis, unspecified organism (principal); U07.1 COVID-19; J96.90 Respiratory failure, unspecified, unspecified whether with hypoxia or hypercapnia; I50.23 Acute on chronic systolic (congestive) heart failure; J12.89 Other viral pneumonia; J44.0 Chronic obstructive pulmonary disease with (acute) lower respiratory infection; I42.9 Cardiomyopathy, unspecified; I13.0 Hypertensive heart and chronic kidney disease with heart failure and stage 1 through stage 4 chronic kidney disease, or unspecified chronic kidney disease; N17.9 Acute kidney failure, unspecified; F03.90 Unspecified dementia, unspecified severity, without behavioral disturbance, psychotic disturbance, mood disturbance, and anxiety; E87.6 Hypokalemia; R41.0 Disorientation, unspecified; D64.9 Anemia, unspecified; N18.9 Chronic kidney disease, unspecified; E78.5 Hyperlipidemia, unspecified; F32.9 Major depressive disorder, single episode, unspecified; Z96.641 Presence of right artificial hip joint; Z99.81 Dependence on supplemental oxygen; Z95.820 Peripheral vascular angioplasty status with implants and grafts; Z90.710 Acquired absence of both cervix and uterus; Z85.820 Personal history of malignant melanoma of skin; Z87.891 Personal history of nicotine dependence; Z88.1 Allergy status to other antibiotic agents; Z88.8 Allergy status to other drugs, medicaments and biological substances
CPT/HCPCS: 10879

== ENCOUNTER 2020-06-29 11:11 | Emergency (ER) | payer OTHER ==
[~2020-06-29] VITALS: Ht 167.6 cm; Wt 51.7 kg
--- NOTE | ~2020-06-29 | EMS ---
[facility] [address] [place] [address] EMS Patient Care Report Name: EARLINE POWELL Room #: REG RENEA Ardon#: [id number] Admission: 06/29/20 Attend Phys: Discharge: Date of : 33 Report #: [id number] THIS REPORT FOR: //name// Report Transmitted: 06/29/2020 11:35 EMS Care Summary [facility] MED-ACT Incident [id number] @ 06/29/2020 10:37 Incident Location [address] [place] [address] Patient EARLINE POWELL Female, 84 Years 1935 Patient Address [address] [place] [address] Patient History Chronic Obstructive Pulmonary Disease (COPD),Gastro-Esophageal Reflux Disease (GERD), Patient Allergies No known allergies, Patient Medications Depakote, Metoprolol, Lasix, Felodipine, ASA, Chief Complaint fell out of bed last night Disposition Transported No Lights/[place] Dispatch Reason Unconscious/Fainting Transported To [facility] Narrative C: fall [facility] [address] [place] [address] EMS Patient Care Report Name: EARLINE POWELL Room #: REGENCY MERIDIAN.#: [id number] Admission: 06/29/20 Attend Phys: Discharge: Date of : 33 Report #: [id number] H: Staff states they found patient this morning on the ground next to bed sleeping. Patient caban not remember falling. Patient has no complaint but thinks she may have hit her head. Staff states their wants her evaluated because she is on plavix. A: see tab R: vitals ST: Taken to [facility] and left in room with RN and report. Initial Vitals @10:48P: 56,SpO2: 77, @10:50P: 56,SpO2: 79, @PTAP: 59,R: 12,BP: 105/59,Pain: 0/10,Temp: 112F,SpO2: 98, @11:02P: 65,R: 12,BP: 170/80,Pain: 0/10,Temp: 98.4F,SpO2: 98, Assessments @10:50MENTAL:No Abnormalities,SKIN:No Abnormalities,HEENT:Head/Face: No Abnormalities,Eyes: No Abnormalities,Neck/Airway: No Abnormalities,LUNG SOUNDS:General: No Abnormalities,Left Upper: No Abnormalities,Right Upper: No Abnormalities,Left Lower: No Abnormalities,Right Lower: No Abnormalities,ABDOMEN:General: No Abnormalities,Left Upper: No Abnormalities,Right Upper: No Abnormalities,Left Lower: No Abnormalities,Right Lower: No Abnormalities,PELVIS//GI:No Abnormalities,EXTREMITIES:Left Arm: No Abnormalities,Right Arm: No Abnormalities,Left Leg: No Abnormalities,Right Leg: No Abnormalities,PULSE:NEURO:No Abnormalities, Impression Injury of Head Procedures @10:5012-Lead ECG Timeline MASTER MACHINIST,BP: 105/59 M,PULSE: 59,RR: 12 R,SPO2: 98 Ox,ETCO2: ,BG: ,PAIN: 0,GCS: , 10:36,Call Received 10:36,Psap Call 10:37,Dispatched 10:38,En Route 10:46,On Scene 10:48,At Patient 10:48,BP: / M,PULSE: 56,RR: R,SPO2: 77 Ox,ETCO2: ,BG: ,PAIN: ,GCS: , 10:50,12-Lead ECG, 10:50,BP: / M,PULSE: 56,RR: R,SPO2: 79 Ox,ETCO2: ,BG: ,PAIN: ,GCS: , [facility] [address] [place] [address] EMS Patient Care Report Name: EARLINE POWELL Room #: REG [facility]#: [id number] Admission: 06/29/20 Attend Phys: Discharge: Date of : 33 Report #: [id number] 10:59,Depart Scene 11:02,BP: 170/80 M,PULSE: 65,RR: 12 R,SPO2: 98 Ox,ETCO2: ,BG: ,PAIN: 0,GCS: , 11:08,At Destination 11:27,Call Closed Disclaimer v1.1 Copyright 2020 [email or web address] This EMS Care Summary contains data elements from the applicable legal record (which may be displayed differently). It is designed to provide pertinent information for the following purposes: continuity of care, clinical quality, and state data reporting. The complete legal record is available to ED staff and administrators of the receiving hospital in [facility]'s Patient Tracker. All data is provided "as is."
[~2020-06-29 11:11] MED LIST changes: +ACEROLA C500 MG PO; +ADVAIR 100-501 EACH INH; +CIPRO250 M2 PO; +DEPAKOTE500 MG PO; +ENOXAPARIN40 MG/0.1 SUBQ; +INDERAL LA120 M1 PO; +PEPCID20 MG PO; +POTASSIUM CHLOR8 ME2 PO; +PREDNISONE 20 M20 M1; +PRESERVISION A1 EAC2 PO; +SPIRIVA18 MCG INH; +ZINC SULFATE 2220 MG PO; +ZOLOFT 50 MG TA50 M1 PO
[2020-06-29 14:28] LABS: HEMATOCRIT 30.1 % (37.0-47.0); MCH 29.9 pg (26.0-34.0); MCHC 33.1 g/dL (28.0-37.0); MCV 90.4 fL (80.0-100.0); RBC 3.33 mil/uL (4.20-5.00); RDW 19.5 % (10.5-14.5); WBC 12.4 thou/uL (4.0-11.0)
[2020-06-29 14:44] LABS: CALCIUM 8.6 mg/dL (8.5-10.1); CREATININE 1.2 mg/dL (0.6-1.0); POTASSIUM 3.5 mmol/L (3.5-5.1)
[2020-06-29 14:48] LABS: ALBUMIN 2.3 g/dL (3.4-5.0); TOTAL BILIRUBIN 0.3 mg/dL (0.2-1.0); TOTAL PROTEIN 5.4 g/dL (6.4-8.2)
[2020-06-29 15:08] LABS: ABSOLUTE NEUTROPHILS 6.3 thou/uL (1.4-8.2); METAMYELOCYTES 6 %; MYELOCYTES 3 %; PLATELET ESTIMATE DECREASED
[2020-06-29 15:09] LABS: PLATELET COUNT 88 thou/uL (150-400)
[2020-06-29 15:10] LABS: ANISOCYTOSIS 2+
[2020-06-29 15:11] LABS: TOXIC GRANULATION SLIGHT
[2020-06-29 15:38] LABS: URINE BILIRUBIN NEGATIVE (Negative); URINE BLOOD 2+ (Negative); URINE CLARITY CLEAR; URINE COLOR YELLOW; URINE GLUCOSE-RANDOM* NEGATIVE (Negative); URINE KETONES NEGATIVE (Negative); URINE NITRITE-REFLEX NEGATIVE (Negative); URINE PROTEIN (DIPSTICK) 1+ (Negative); URINE SPECIFIC GRAVITY 1.015 (1.005-1.035); URINE UROBILINOGEN 0.2 E.U./dl (0.2-1.0)
[2020-06-29 15:40] LABS: URINE LEUKOCYTES-REFLEX 2+ (Negative)
[2020-06-29 16:03] LABS: SQUAMOUS 0-3 Few /LPF (0-3)
[2020-06-29 16:04] LABS: CALCIUM OXALATE 0-3 Few /LPF (None Seen); YEAST-REFLEX Present (None Seen)
[2020-06-29 16:05] LABS: URINE WBC-REFLEX 6-15 Few /HPF (0-5)
[2020-06-29 16:06] LABS: HYALINE CASTS 0-3 Few /LPF (None Seen); MUCUS 0-3 Light strn/LPF (None Seen)
[2020-06-29 17:10] VITALS: BP 108/49
== END 2020-06-29 17:10 ==
LOC: ER 11:11
PROVIDERS: Physician Assistant
DX: S09.90XA Unspecified injury of head, initial encounter (principal); N39.0 Urinary tract infection, site not specified; J44.9 Chronic obstructive pulmonary disease, unspecified; E78.5 Hyperlipidemia, unspecified; J45.909 Unspecified asthma, uncomplicated; K21.9 Gastro-esophageal reflux disease without esophagitis; I11.0 Hypertensive heart disease with heart failure; I50.9 Heart failure, unspecified; Z87.891 Personal history of nicotine dependence; Z88.1 Allergy status to other antibiotic agents; Z88.8 Allergy status to other drugs, medicaments and biological substances; Z79.01 Long term (current) use of anticoagulants; Z79.899 Other long term (current) drug therapy; Z79.82 Long term (current) use of aspirin; Z90.49 Acquired absence of other specified parts of digestive tract; W06.XXXA Fall from bed, initial encounter; Y93.89 Activity, other specified; Y92.89 Other specified places as the place of occurrence of the external cause; Y99.9 Unspecified external cause status

== ENCOUNTER 2020-07-11 01:27 | Inpatient (IN) | payer OTHER ==
[2020-07-11] VITALS (8 sets, daily range): BP systolic 102–129; BP diastolic 28–67
[~2020-07-11] VITALS: Ht 167.6 cm; Wt 54.0 kg
[2020-07-11 02:12] LABS: ABSOLUTE NEUTROPHILS 9.3 thou/uL (1.4-8.2); BASOPHILS 0.5 % (0.0-2.0); EOSINOPHILS 0.1 % (0.0-3.0); LYMPHOCYTES 7.5 % (24.0-44.0); MCH 29.2 pg (26.0-34.0); MCHC 33.3 g/dL (28.0-37.0); MCV 87.7 fL (80.0-100.0); MONOCYTES 11.2 % (1.0-8.0); PLATELET COUNT 79 thou/uL (150-400); POLYS 80.7 % (36.0-66.0); RBC 2.01 mil/uL (4.20-5.00); RDW 17.9 % (10.5-14.5); WBC 11.5 thou/uL (4.0-11.0)
[2020-07-11 02:14] LABS: HEMATOCRIT 17.6 % (37.0-47.0); HEMOGLOBIN 5.9 gm/dL (12.0-15.0)
[2020-07-11] MEDS ORDERED: ALIGN4 MG PO ×2 (02:50→11:56)
[2020-07-11] MEDS ORDERED: OYSTER SHELL PO (02:52)
[2020-07-11] MEDS ORDERED: VIT D PO (02:52)
[2020-07-11 02:53] LABS: CALCIUM 8.6 mg/dL (8.5-10.1); CREATININE 1.2 mg/dL (0.6-1.0); POTASSIUM 3.8 mmol/L (3.5-5.1)
[2020-07-11] MEDS ORDERED: PROTONIX40 M2 PO (02:53)
[2020-07-11] MEDS ORDERED: SSD CREAM 1% 5050 GM TOP (02:54)
[2020-07-11] MEDS ORDERED: SUPER THERAVIT1 EACH PO (02:54)
[2020-07-11 02:55] LABS: PROTIME 10.7 Seconds (9.3-11.4)
[2020-07-11 03:00] LABS: ALBUMIN 2.4 g/dL (3.4-5.0); TOTAL BILIRUBIN 0.5 mg/dL (0.2-1.0); TOTAL PROTEIN 5.2 g/dL (6.4-8.2)
--- NOTE | 2020-07-11 05:41 | NUR ---
ADMISSION COMPLETED. PT IS A POOR HISTORIAN.ALERT TO SELF , PLACE AND SITUATION. PT DENIES PAIN. EPPS TO D/D WITH DARK YELLOW U/O. SACCRAL REDENESS,HEALING WOUND/PICS TAKEN. DENIES SOA OR COUGH. CHRONIC OXYGEN USE DUE TO COPD.PT IS COLD, DIFFICULT TO GET TEMP, EXTRA WARM BLANKETS PROVIDED. SATTING OKAY AT 100%. SHE IS CALM AND COOPERATIVE. FALL PREC IN PLACE.
--- NOTE | 2020-07-11 10:15 | NUR ---
WOUND CARE CONSULT; THE PATIENT IS CONFUSED BUT COOPERATIVE AND PLEASANT. A SMALL SACRAL WOUND WAS IDENTIFIED. FISSURE-LIKE 0.5 X 0.3 X 0.1 NO S/S OF INFECTION. PERIWOUND IS HEALTHY. NO ODOR OR ANY OTHER S/S OF INFECTION. RECOMMENDATIONS; -*TURN THIS PATIENT Q2H* -LOW AIR LOSS PUMP. -APPLY ZGUARD COVER WITH A BORDER FOAM. RN PRESENT -
--- NOTE | 2020-07-11 11:07 | NUR ---
Case opened to follow for dc planning. Pt is known to cm from several admissions since May 2020. The pt had covid in May and was sent to [facility] SNF. She readmitted with GI bleed and was then sent to [facility] in early June where she has been rehabing. Prior to her covid admission, the pt was living in the independent apts at [facility]. She uses a rwalker and home o2 2lnc per [facility]. Her dtr Sary is her dpoa and primary emergency contact for dc planning. The pt has readmitted with GI bleed. GI consult in progress and the pt is getting a 2nd unit of blood this am. Possible EGD. Pt is A&ox1-2. GI to call dtr for consents. Will ask for therapy evals as appropriate. BOP updated and dc cyber intel planner to fax her admission clinical. They can accept for readmission for continued SNF stay, but will insurance auth per [facility] Medicare. Will follow.
[2020-07-11] MEDS ORDERED: CARBIDOPA-LEVO1 EAC5 PO (11:58)
[2020-07-11] MEDS ORDERED: LEVO-T50 MCG PO (11:59)
[2020-07-11 15:48] LABS: HEMATOCRIT 31.3 % (37.0-47.0)
[2020-07-11 15:50] LABS: HEMOGLOBIN 10.4 gm/dL (12.0-15.0)
--- NOTE | 2020-07-11 16:51 | NUR ---
FAXED CLINICAL UPDATE TO [facility] RECEIVED CONFIRMATION AND LEFT MSG WITH ADM.
--- NOTE | 2020-07-11 19:20 | NUR ---
Pt was tested for COVID and was positive. Pt had known COVID in May and does not need isolation.
--- NOTE | 2020-07-11 19:42 | NUR ---
Assumed pt care this am, dementia is evident but redirectable. @ units of prbc done hemoglobin now at 10+, no reactions noted. Scheduled for colonoscopy tomorrow, started bowel prep though challenged, informed night nurse that if pt cannot tolerate prep to inform for alterntive. On low air loss mattress, wound care and dressing chage done with [facility] nurse. Q2 turns done though pt is able to turn and repositon self. Fc in place draining dark yellow urine. POC followed no signs or verbalization of distress noted. Endorsed to the night nurse,
[2020-07-12 04:11] VITALS: BP 158/66
--- NOTE | 2020-07-12 04:47 | NUR ---
RECIEVED CARE OF THIS PATIENT AT 1900. PATIENT ALERT AND ORIENTED TO SELF ONLY. HAS TRIED MANY TIMES TO GET OUT OF BED. RECIEVED A BOWEL PREP FOR A PROCEDURE THIS AM. STOOLS NOT CLEAR, HAS HARD BALLS AMONG DARK LIQUID STOOL. PATIENT NPO SINCE MIDNIGHT WXCEPT FOR THE LAST OF THE BOWEL PREP. HAS SACRAL WOUND WITH DRY DRESSING. O2 AT 2L/NC. DENIES PAIN. IMPULSIVE. HAS NOT SLEPT THIS SHIFT.
[2020-07-12 05:38] LABS: HEMATOCRIT 33.3 % (37.0-47.0); HEMOGLOBIN 11.3 gm/dL (12.0-15.0); MCH 30.2 pg (26.0-34.0); MCV 88.9 fL (80.0-100.0); RBC 3.74 mil/uL (4.20-5.00); RDW 16.3 % (10.5-14.5); WBC 11.9 thou/uL (4.0-11.0)
[2020-07-12 08:26] VITALS: BP 127/58
--- NOTE | 2020-07-12 08:51 | NUR ---
ASSUMED CARE AT 0700. PT IS a&O X1 SELF. LOW AIR MATTRESS. PT IS NPO SINCE MIDNIGHT FOR COLONOSTOMY. NIGHT NURSE SPOKE WITH GI LAB TO SEE WHAT MEDICATIONS THAT PT NEEDS. GI LAB TOLD HER 3 MEDICATIONS THAT WAS GIVEN BY NIGHT NURSE AROUND 7 AM. IV IS INTACT AND SHOWS NO SIGNS OF REDNESS OR SWELLING. PT IS ON 2 L OF O2. VSS. WILL CONTINUE TO MONITOR. CALL LIGHT WITHIN REACH.
--- NOTE | 2020-07-12 13:27 | NUR ---
CHARI reviewed chart and spoke with nursing. Pt to have colonoscopy today per GI. SW placed call to pt's dtr, Sary, to discuss plan of care and discharge. Sary had to take another call during SW visit. [facility] will need insurance authorization for pt to return using her skilled benefit. CHARI is following to assist as needed with discharge planning.
[2020-07-12 15:30] VITALS: BP 135/72
[2020-07-12 16:11] VITALS: BP 150/66
[2020-07-12 19:55] VITALS: BP 123/49
[2020-07-12 20:45] VITALS: BP 90/51
[2020-07-13] VITALS (10 sets, daily range): BP systolic 87–147; BP diastolic 34–65
--- NOTE | 2020-07-13 03:59 | NUR ---
Assumed pt care at 1900. Pt is alert and confused and forgetful. Pt is laying in bed. Fall precaution in place. Pt is stable. Assessment completed and documented. Scheduled meds administered to pt. PO intake tolerated. Pt is NPO at midnight for a scheduled procedure. No acute events noted. Continue to monitor.
[2020-07-13 05:35] LABS: HEMATOCRIT 29.5 % (37.0-47.0); HEMOGLOBIN 10.1 gm/dL (12.0-15.0); MCH 30.7 pg (26.0-34.0); MCHC 34.2 g/dL (28.0-37.0); MCV 89.7 fL (80.0-100.0); RBC 3.29 mil/uL (4.20-5.00); WBC 8.7 thou/uL (4.0-11.0)
[2020-07-13 05:38] LABS: CREATININE 0.9 mg/dL (0.6-1.0); POTASSIUM 3.9 mmol/L (3.5-5.1)
--- NOTE | 2020-07-13 09:05 | NUR ---
Pt with severe protein calorie malnutrition with poor intake several weeks and wt loss. If GI concerns limit further ability for adequate intake, suggest temporary clinimix PPN to run at 100ml/hr.
--- NOTE | 2020-07-13 09:36 | NUR ---
PT CARE ASSUMED AT 0700. A&ORIENTED TO SELF. PT CONTINUES TO ASK WHERE HER IS AND THE KEYS TO HER CAR. PT REDIRECTED TO SITUATION. NPO SINCE MIDNIGHT FOR PROCEDURE TODAY. MEDS TAKEN WITH SIPS OF WATER. IV PATENT WITH NO REDNESS OR EDEMA, SALINE LOCKED. PT TAKES PILLS WHOLE WITH WATER. PT MOVED CLOSER TO NURSES STATION DUE TO IMPULSIVENESS. UP IN THE RECLINER. HAIR WASHED. FALL PROTOCOL IN PLACE. CALL LIGHT IN REACH. WILL CONTINUE TO MONITOR.
--- NOTE | 2020-07-13 15:11 | NUR ---
CROW UPDATED AMANDA W/IZA, PT IS A POSSIBLE D/C TOMMOROW, PER DR'S REPORT AT PT ROUNDS. AMANDA STATED SHE WILL NEED THERAPY NOTES IN ORDER TO RUN AUTH. CROW WERNER, TO ENTER ORDERS. PER BENITO PATELID TEST NOT NEEDED D/T PT "ONLY BEING EIGHT WEEKS OUT."
--- NOTE | 2020-07-13 19:38 | NUR ---
PT ARRIVED POST IR/CATH. NOT INTERVENITOIN. RIGHT ARLETH SIGHT C/D/I. PT COMPLIANT WITH LAYING STILL. VSS. IV INFILTRATED NEW IV PLACED BY IV TEAM. UPDATED PT'S DTR ON STATUS. PER 4S RN PT TO DC BACK TO [facility] IF PT DID NOT HAVE STENTS PLACED. FALL RISK. BED ALARM AND CALL LIGHT IN REACH. STAFF TO ANTICIPATE NEEDS
[2020-07-14 04:17] LABS: HEMATOCRIT 29.7 % (37.0-47.0); HEMOGLOBIN 9.9 gm/dL (12.0-15.0); MCH 30.6 pg (26.0-34.0); MCHC 33.5 g/dL (28.0-37.0); MCV 91.5 fL (80.0-100.0); RBC 3.25 mil/uL (4.20-5.00); RDW 15.9 % (10.5-14.5); WBC 9.2 thou/uL (4.0-11.0)
[2020-07-14 04:20] LABS: CALCIUM 8.4 mg/dL (8.5-10.1); CREATININE 0.9 mg/dL (0.6-1.0); POTASSIUM 4.3 mmol/L (3.5-5.1)
[2020-07-14 05:08] VITALS: BP 119/44
--- NOTE | 2020-07-14 05:22 | NUR ---
Assumed pt care at 1900. Pt is alert abut confused ad forgetful. No sign of distress noted. Pt is stable. Denies any pain. Fall precaution in place. Assessment completed and documented. Scheduled meds administered to pt. Continue to monitor. No further needs at this time.
[2020-07-14 08:35] VITALS: BP 72/32
[2020-07-14 09:36] VITALS: BP 108/41
[2020-07-14 11:43] VITALS: BP 119/36
--- NOTE | 2020-07-14 11:45 | NUR ---
WAITING FOR PT AND OT EVALUATIONS. ORDERED 07/13/20. FAX THERAPY NOTES TO [facility] WHEN THEY ARE AVAILABLE. SPOKE TO WEEKEND CONTACT/SHE[facility]A [facility] P [phone]; FAX [phone]
--- NOTE | 2020-07-14 14:01 | NUR ---
FAXED CLINICAL UPDATES AND OT & PT EVALUATIONS TO [facility]. WILL CONFIRM THEY RECEIVED AND SUBMIT INSURANCE AUTHORIZATION FOR WEEKEND DISCHARGE. LEFT MESSAGE FOR SHEELA/NURSE WATCH TECHNICIAN AT [facility]. NOTIFIED NICOLETTE/RN IN 2N/CCU THAT DOCUMENTS WERE SUBMITTED & WAITING FOR AUTHORIZATION. [facility] P [phone]; FAX [phone]
[2020-07-14 17:08] VITALS: BP 145/60
[2020-07-14 20:35] VITALS: BP 102/50
[2020-07-15] VITALS (7 sets, daily range): BP systolic 102–146; BP diastolic 42–70
--- NOTE | 2020-07-15 05:06 | NUR ---
ASSUMED PT CARE AT AROUND 1900, PT IS AWAKE, ALERT AND ORIENTE WITH CONFUSION; PHT IS IMPLUSIVE AT TIMES; REMINDED TO USE CALL LIGHT FOR NEEDS, SR ON THE MONITOR; ASSESSMENTS CHARTED, NO ACUTE DISTRESS NOTED OVERNIGHT; MEDS GIVEN PER AUG; WILL PASS ON REPORT
--- NOTE | 2020-07-15 16:47 | NUR ---
ASSESSMENT CHARTED. PT ALERT AND ORIENTED. PLEASANTLY CONFUSED WITH FORGETFULNESS. DENIED HAVING PAIN OR DISCOMFORT. UP IN THE CHAIR THIS SHIFT. NEEDED NUMEROUS VERBAL PROMPT NOT TO TRANSFER HERSELF. PT PROGRESSING WELL TOWARDS DISCHARGE GOAL. NO CONCERNS AT THIS TIME.
[2020-07-16 05:24] VITALS: BP 159/66
[2020-07-16 09:00] VITALS: BP 94/37
[2020-07-16 10:00] VITALS: BP 102/47
--- NOTE | 2020-07-16 15:07 | PATH ---
[facility] [address] [place] [address] PATHOLOGY RPT PROCEDURE Name: EARLINE POWELL Room #: 218-P ADM IN M.R.#: [id number] Admission: 07/11/20 Date of : 33 Discharge: Report #: [id number] Path Case #: [id number] [facility] Accession Number: [id number] . 01 Material submitted: . PART A: colon - ASCENDING COLON POLYP X2. Modifiers: ascending PART B: colon - COLITIS R/O ISCHEMIC COLITIS . 01 Clinical history: . GI BLEED, COLON POLYP, COLITIS . 02 Diagnosis: A. Polyp x2, ascending colon polyp, endoscopic biopsy: - Tubular adenoma, multiple fragments. - Negative for high-grade dysplasia. . B. Large intestinal, colitis, rule out ischemic colitis, endoscopic biopsy: - Fragments of inflamed tubular adenoma x2. - Background showing mild active colitis with abundant eosinophils within lamina propria. - Negative for high-grade dysplasia within any of the biopsy tissue fragments sampled. . (IUV:fahad; 07/16/2020) MBR 07/16/2020 1220 Local . 02 Comment: B. Sections of the colonic mucosa designated "rule out ischemic colitis" show focal cryptitis, and a moderately cellular lamina propria composed predominantly of lymphocytes and plasma cells and abundant eosinophils. Surface ulceration is present focally. There are no crypt abscesses, granulomas or viral inclusions. The process affects all the fragments with a similar intensity. Given the description, the differential diagnosis includes allergic colitis, fungal/parasitic infectious colitis, eosinophilic colitis, drug/medication induced colitis, diverticulitis as well as inflammatory bowel disease. Features do not support ischemic colitis. Please correlate with clinical as well as endoscopic findings. (IUV:dragline operator; 07/16/2020) . 02 Electronically signed: . Claire Bueno MD, Pathologist NPI- [id number] . 01 Gross description: . A. The specimen is received in formalin, labeled "Earline Powell, BX ascending colon polyp" and consists of 3 fragments of pink-moran tissue [address] [address] PATHOLOGY RPT PROCEDURE Name: EARLINE POWELL S Room #: 218-P ADM IN M.R.#: [id number] Admission: 07/11/20 Date of : 34 Discharge: Report #: [id number] Path Case #: [id number] measuring between 0.3 x 0.2 cm and 0.4 x 0.2 cm which are entirely submitted in A1. . B. The specimen is received in formalin, labeled "Fuchs, Earline, BX colitis" and consists of multiple fragments of moran tissue measuring 1.2 x 0.8 x 0.3 cm in aggregate which are entirely submitted in B1. (SDY; 07/13/2020) SYU/SYU 07/13/2020 1608 Local . 02 Pathologist provided ICD-10: D12.2, D12.6, K52.9 . 02 CPT . 093777, 100620 Specimen Comment: A courtesy copy of this report has been sent to [phone], [phone] Specimen Comment: [phone] Specimen Comment: Report sent to / DR ROSENBERG Performed at: [address], [place] [id number] MD Jose Luis Bailey MD Phone: [phone] Performed at: [address] [id number] MD Claire Bueno MD Phone: [phone]
--- NOTE | 2020-07-16 15:22 | NUR ---
PT DISCHARGING TODAY TO [facility] SKILLED FAXED DC ORDERS/SUMMARY SPOKE WITH AMANDA IN ADM SHE RECEIVED ORDERS AND ARRANGED TRANSPORT FOR 1529. NOTIFIED PT'S DTR (CLEMENTINA) OF DC AND TIME OF TRANSPORT. UNIT NOTIFIED AND CHART COPY PER US. RN TO CALL REPORT TO [phone].
--- NOTE | 2020-07-16 15:35 | NUR ---
DISCHARGING TO [facility]. TELE CARLITA SECURED. EXTENSIVE SEARCH FOR "MISSING" NECKLACE THAT WAS IN SECURITY THE WHOLE TIME.
--- NOTE | 2020-07-18 08:07 | P ---
[facility] [place] [address] PROCEDURE REPORT Name: EARLINE POWELL Room #: 218-P [facility] IN M.R.#: [id number] Admission: 07/11/20 Attend Phys: Lei Wayne MD Discharge: 07/16/20 Date of : 34 Report #: [id number] THIS REPORT FOR: cc: Lei Wayne MD, Neal A. MD McElhinney, Christian C. MD ~ DATE OF SERVICE: 07/12/2020 PROCEDURE PERFORMED: Colonoscopy with biopsies. HISTORY OF PRESENT ILLNESS: The patient is an 84-year-old female with history of anemia and GI bleed. She underwent an upper endoscopy by my partner, Dr. Greene last month for GI bleed showing only mild Schatzki's ring, hiatal hernia, and mild gastritis. She has had a previous colonoscopy in 2010 showing colitis from the splenic flexure, descending colon. Suspect ischemic colitis. She has had a previous history of an MASON stent placement approximately in 2002 for ischemic colitis at that time. She has a history of dementia. Her admit hemoglobin was 5.9. She underwent blood transfusion of 2 units. Her hemoglobin now is 11.3. Plan is for colonoscopy. DESCRIPTION OF PROCEDURE: The risks and benefits of the procedure were explained to the patient and her daughter. Those risks including but not limited to bleeding, perforation and the risk of sedation. They understood these risks and gave informed consent. Sedation was given using propofol per anesthesia. Next, a digital rectal exam was initially performed, which was normal. Next, using a standard Olympus colonoscope, the scope was placed in the patient's anus and advanced under direct vision to the cecum. The overall prep was adequate in most areas. There was somewhat poor in a few areas which did limit visualization. Areas of the cecum that were visualized were normal. The ileocecal valve was normal. In the ascending colon, two 4-5 mm sessile polyps are noted, both removed with cold forceps, otherwise normal. The transverse colon was normal. In the descending colon, in the proximal sigmoid colon, there was a diffuse colitis with ulcerations. No evidence of active bleeding. This likely is consistent with ischemic colitis. Biopsies were obtained. The rectal mucosa was normal. On retroflexion, no abnormalities were noted. The scope was then withdrawn and the procedure terminated. The patient tolerated the procedure well. IMPRESSION: 1. Colitis involving the descending and part of the sigmoid colon, suspect due to ischemic colitis. The patient has a previous history of this, no active bleeding. 2. Small colonic polyps. 3. Otherwise, normal colonoscopy. [address] [address] PROCEDURE REPORT Name: EARLINE POWELL Room #: 218-P [facility] IN ..#: [id number] Admission: 07/11/20 Attend Phys: Lei Wayne MD Discharge: 07/16/20 Date of : 34 Report #: [id number] RECOMMENDATIONS: 1. Await biopsy results. 2. I discussed the options with the patient's daughter who is her durable power of staff attorney because she has apparently recurrent ischemic colitis and she has had a previous stent placed in the MASON, could consider proceeding with an arteriogram for further evaluation as this may need to be revised to have improved. She understands and agrees with this plan. We will put in a consult to Dr. Graff. Thank you for allowing me to participate in her care. <ELECTRONICALLY SIGNED> By: Anders Heredia MD 07/18/20 0807 1513 1801 Anders Heredia MD /nt
== END 2020-07-16 17:00 | DRG 356 ==
LOC: ER 01:27 → EROBS 03:34 → 2N 03:34 → 4S 03:34 → 2N 07-13 17:03
PROVIDERS: Emergency Medicine; Nuclear Medicine Nuclear Cardiology; Nurse Practitioner; ADMIT Family Medicine; ATTEND Family Medicine
DX: K55.059 Acute (reversible) ischemia of intestine, part and extent unspecified (principal); E43 Unspecified severe protein-calorie malnutrition; Z68.1 Body mass index [BMI] 19.9 or less, adult; D64.9 Anemia, unspecified; E78.5 Hyperlipidemia, unspecified; F03.90 Unspecified dementia, unspecified severity, without behavioral disturbance, psychotic disturbance, mood disturbance, and anxiety; J44.9 Chronic obstructive pulmonary disease, unspecified; K58.9 Irritable bowel syndrome, unspecified; I11.0 Hypertensive heart disease with heart failure; I50.9 Heart failure, unspecified; F32.9 Major depressive disorder, single episode, unspecified; K21.9 Gastro-esophageal reflux disease without esophagitis; I25.10 Atherosclerotic heart disease of native coronary artery without angina pectoris; I35.0 Nonrheumatic aortic (valve) stenosis; K55.1 Chronic vascular disorders of intestine; E03.9 Hypothyroidism, unspecified; D12.2 Benign neoplasm of ascending colon; Z66 Do not resuscitate; Z96.641 Presence of right artificial hip joint; Z96.1 Presence of intraocular lens; Z20.822 Contact with and (suspected) exposure to COVID-19; Z86.73 Personal history of transient ischemic attack (TIA), and cerebral infarction without residual deficits; Z90.49 Acquired absence of other specified parts of digestive tract; Z90.711 Acquired absence of uterus with remaining cervical stump; Z98.42 Cataract extraction status, left eye; Z98.41 Cataract extraction status, right eye; Z87.891 Personal history of nicotine dependence; Z79.01 Long term (current) use of anticoagulants; Z79.82 Long term (current) use of aspirin; Z79.899 Other long term (current) drug therapy; Z88.1 Allergy status to other antibiotic agents; Z88.8 Allergy status to other drugs, medicaments and biological substances; Z91.09 Other allergy status, other than to drugs and biological substances; Z85.828 Personal history of other malignant neoplasm of skin
CPT/HCPCS: 10081; 10195; 62110; 62900; 70005

== ENCOUNTER 2020-08-08 08:52 | Emergency (ER) | payer OTHER ==
[~2020-08-08] VITALS: Ht 167.6 cm; Wt 56.7 kg
--- NOTE | ~2020-08-08 | EMS ---
[address] [address] EMS Patient Care Report Name: EARLINE POWELL Room #: REG RENEA Ardon#: [id number] Admission: 08/08/20 Attend Phys: Discharge: Date of : 34 Report #: [id number] THIS REPORT FOR: //name// Report Transmitted: 08/08/2020 08:56 EMS Care Summary [facility] MED-ACT Incident [id number] @ 08/08/2020 08:17 Incident Location [address] [place] [address] Patient EARLINE POWELL Female, 84 Years 1935 Patient Address [address] [place] [address] [address] [place] [address] Patient History Chronic Obstructive Pulmonary Disease (COPD),Gastro-Esophageal Reflux Disease (GERD), Patient Allergies Erythromycin,Iron,Dust allergy,House dust allergy,Seasonal allergy,Cipro, Patient Medications Felodipine, Depakote, ASA, Lasix, Metoprolol, Chief Complaint Hypertension Disposition Transported No Lights/[place] Dispatch Reason Breathing Problem Transported To [facility] Narrative History- Pt is found sitting in a wheelchair in the front entrance of a rehab [address] [address] EMS Patient Care Report Name: EARLINE POWELL Room #: REG Phil.#: [id number] Admission: 08/08/20 Attend Phys: Discharge: Date of : 34 Report #: [id number] facility. Staff states the pt's blood pressure has been high this morning and the and has a slight increase in shortness of breath. The wanted the pt transported to be evaluated for possible PE. Pt complains of a "little bit of shortness of breath". she denies chest pain or any other complaints. Treatment- Vitals. 12 lead. Pt transported to [place] and moved to the bed by sheet drag. Report given to the RN. Initial Vitals @08:32MI Suspected: false @08:38P: 109,R: 16,BP: 170/92,SpO2: 98, @08:45P: 94,R: 16,BP: 176/85,Pain: 0/10,GCS: 15,SpO2: 98,Revised Trauma: 12, @08:28R: 16,BP: 182/113,Pain: 0/10,GCS: 15,Temp: 98.3F,SpO2: 100,Revised Trauma: 12, Assessments @08:41MENTAL:Person Oriented,Time Oriented,Event Oriented,Place Oriented,SKIN:HEENT:Head/Face: No Abnormalities,Eyes: No Abnormalities,Neck/Airway: No Abnormalities,LUNG SOUNDS:General: No Abnormalities,Left Upper: No Abnormalities,Right Upper: No Abnormalities,Left Lower: No Abnormalities,Right Lower: No Abnormalities,ABDOMEN:General: No Abnormalities,Left Upper: No Abnormalities,Right Upper: No Abnormalities,Left Lower: No Abnormalities,Right Lower: No Abnormalities,PELVIS//GI:EXTREMITIES:Left Arm: No Abnormalities,Right Arm: No Abnormalities,Left Leg: No Abnormalities,Right Leg: No Abnormalities,PULSE:Radial: 2+ Normal,NEURO:No Abnormalities, Impression Hypertension Procedures @08:23ALS AssessmentResponse: UnchangedSucceeded@08:3212-Lead ECGResponse: UnchangedSucceeded@PTASurgical Mask on Patient Timeline COMMUNITY SERVICE AIDE,Surgical Mask on Patient, 08:15,Call Received 08:15,Psap Call 08:17,Dispatched 08:18,En Route 08:21,On Scene 08:22,At Patient 08:23,ALS Assessment,Response: UnchangedSucceeded, 08:28,BP: 182/113 M,PULSE: ,RR: 16 R,SPO2: 100 Ox,ETCO2: ,BG: ,PAIN: 0,GCS: 15, 08:32,12-Lead ECG,Response: UnchangedSucceeded, 08:32,BP: / M,PULSE: ,RR: R,SPO2: Ox,ETCO2: ,BG: ,PAIN: ,GCS: , [address] [address] EMS Patient Care Report Name: EARLINE POWELL Room #: REG [facility].#: [id number] Admission: 08/08/20 Attend Phys: Discharge: Date of : 34 Report #: [id number] 08:35,Depart Scene 08:38,BP: 170/92 M,PULSE: 109,RR: 16 R,SPO2: 98 Ox,ETCO2: ,BG: ,PAIN: ,GCS: , 08:45,BP: 176/85 M,PULSE: 94,RR: 16 R,SPO2: 98 Ox,ETCO2: ,BG: ,PAIN: 0,GCS: 15, 08:49,At Destination 09:05,Call Closed Disclaimer v1.1 Copyright 2020 [employer] This EMS Care Summary contains data elements from the applicable legal record (which may be displayed differently). It is designed to provide pertinent information for the following purposes: continuity of care, clinical quality, and state data reporting. The complete legal record is available to ED staff and administrators of the receiving hospital in [employer]'s Patient Tracker. All data is provided "as is."
[~2020-08-08 08:52] MED LIST changes: +CARBIDOPA-LEVO1 EAC5 PO; +LEVO-T50 MCG PO; +OYSTER SHELL PO; +PROTONIX40 M2 PO; +SSD CREAM 1% 5050 GM TOP; +SUPER THERAVIT1 EACH PO; +VIT D PO
[2020-08-08] MEDS ORDERED: CALCIUM500 MG PO (09:06)
[2020-08-08] MEDS ORDERED: SLOW FE142 MG PO (09:07)
[2020-08-08 10:14] LABS: HEMATOCRIT 28.8 % (37.0-47.0); HEMOGLOBIN 9.3 gm/dL (12.0-15.0); MCH 31.5 pg (26.0-34.0); MCHC 32.4 g/dL (28.0-37.0); MCV 97.4 fL (80.0-100.0); PLATELET COUNT 354 thou/uL (150-400); RBC 2.95 mil/uL (4.20-5.00); RDW 20.5 % (10.5-14.5); WBC 8.2 thou/uL (4.0-11.0)
[2020-08-08 10:15] LABS: ANION GAP 6 mmol/L (7-16); BUN 12 mg/dL (7-18); CALCIUM 8.4 mg/dL (8.5-10.1); CHLORIDE 103 mmol/L (98-107); CO2 30 mmol/L (21-32); CREATININE 0.9 mg/dL (0.6-1.0); GLUCOSE 92 mg/dL (74-106); POTASSIUM 3.3 mmol/L (3.5-5.1); PROTIME 9.1 Seconds (9.3-11.4); SODIUM 139 mmol/L (136-145)
[2020-08-08 10:22] LABS: URINE BILIRUBIN NEGATIVE (Negative); URINE BLOOD NEGATIVE (Negative); URINE CLARITY CLEAR; URINE COLOR YELLOW; URINE GLUCOSE-RANDOM* NEGATIVE (Negative); URINE KETONES NEGATIVE (Negative); URINE LEUKOCYTES-REFLEX NEGATIVE (Negative); URINE NITRITE-REFLEX NEGATIVE (Negative); URINE PROTEIN (DIPSTICK) NEGATIVE (Negative); URINE SPECIFIC GRAVITY 1.015 (1.005-1.035); URINE UROBILINOGEN 0.2 E.U./dl (0.2-1.0)
[2020-08-08 10:25] LABS: ALBUMIN 2.7 g/dL (3.4-5.0); SGOT 13 U/L (15-37); SGPT 16 U/L (14-59); TOTAL BILIRUBIN 0.2 mg/dL (0.2-1.0); TROPONIN-I <0.06 ng/mL (<0.06)
[2020-08-08 11:01] LABS: ABSOLUTE NEUTROPHILS 5.7 thou/uL (1.4-8.2); METAMYELOCYTES 2 %; MYELOCYTES 1 %
[2020-08-08 11:02] LABS: OVALOCYTES FEW
[2020-08-08 11:29] VITALS: BP 179/69
--- NOTE | 2020-08-08 13:42 | EKG ---
[place] [address] [address] [facility] [place] [address] ELECTROCARDIOGRAM REPORT Name: EARLINE POWELL Room #: [facility]P [facility]#: [id number] Admission: 08/08/20 Attend Phys: Discharge: 08/08/20 Date of : 34 Report #: [id number] [facility] ED Test Date: 2020-08-08 Test Time: 09:12:39 Pat Name: EARLINE POWELL Department: Room: Gender: F [employer]: : 1935 Requested By: Raji Payan Order Number: [id number] MD: Pb Echeverria Measurements Intervals [place] Rate: 96 P: 68 [place]: 141 QRS: 10 QRSD: 91 T: 69 QT: 339 QTc: 429 Interpretive Statements Sinus rhythm Minimal ST depression, anterolateral leads Compared to ECG 06/07/2020 15:07:25 No significant changes Electronically Signed On 08-08-2020 13:41:49 LANGUAGE THERAPIST by Pb Echeverria [email or web address] <ELECTRONICALLY SIGNED> By: Pb Echeverria MD, [facility] 08/08/20 1341 0912 1 Pb Echeverria MD, FACC /EPI
== END 2020-08-08 11:10 ==
LOC: ER 08:52
PROVIDERS: Emergency Medicine
DX: R53.1 Weakness (principal); D64.9 Anemia, unspecified; E78.5 Hyperlipidemia, unspecified; I11.0 Hypertensive heart disease with heart failure; I50.9 Heart failure, unspecified; K21.9 Gastro-esophageal reflux disease without esophagitis; J44.9 Chronic obstructive pulmonary disease, unspecified; Z90.49 Acquired absence of other specified parts of digestive tract; Z79.899 Other long term (current) drug therapy; Z87.891 Personal history of nicotine dependence; Z88.8 Allergy status to other drugs, medicaments and biological substances

== ENCOUNTER 2020-08-18 23:14 | Inpatient (IN) | payer OTHER ==
[~2020-08-18] VITALS: Ht 162.6 cm; Wt 56.3 kg
--- NOTE | ~2020-08-18 | EMS ---
[facility] [address] [address] EMS Patient Care Report Name: EARLINE POWELL Room #: REG RENEA Ardon#: [id number] Admission: 08/18/20 Attend Phys: Discharge: Date of : 34 Report #: [id number] THIS REPORT FOR: //name// Report Transmitted: 08/18/2020 23:44 EMS Care Summary [facility] MED-ACT Incident [id number] @ 08/18/2020 22:24 Incident Location [address] [address] Patient EARLINE POWELL Female, 84 Years 1935 Patient Address [address] [address] Patient History Chronic Obstructive Pulmonary Disease (COPD),Hypertension (HTN),Gastro-Esophageal Reflux Disease (GERD),Hysterectomy, Patient Allergies Erythromycin,Iron,Dust allergy,House dust allergy,Seasonal allergy,Cipro, Patient Medications Levothyroxine, Lasix, ASA, Felodipine, Calcium, Metoprolol, Carbidopa, Depakote, Chief Complaint Abnormal lab values Disposition Transported No Lights/[place] Dispatch Reason Sick Person Transported To [facility] Narrative INITIAL: Patient found sitting in her wheelchair, alert. [facility] [address] [place] [address] EMS Patient Care Report Name: EARLINE POWELL Room #: REG Reva#: [id number] Admission: 08/18/20 Attend Phys: Discharge: Date of : 34 Report #: [id number] HPI: Patient recently arrived at [facility] and had routine labs performed. The patient's sodium came back low, at 126 (reference range 134-145). The nurse called 911, intending to call for a non-emergency ambulance service. After some discussion, it was decided that EMS would take the patient. The patient had no complaints. She said she felt "too good," to be going to the hospital. Nursing staff reported that the patient normally has mild confusion and did not seem any different from baseline today. PLAN: Vitals, history, assessment, discussion with patient, nurse, and family. Moved patient to cot and moved to back of ambulance. Transported non-emergency to [facility]. Patient remained stable during transport. Transferred patient to ER nurse in room 1. Initial Vitals @22:48P: 69,R: 18,BP: 101/50,Pain: 0/10,GCS: 14,SpO2: 99,Revised Trauma: 12, @23:00P: 62,R: 18,BP: 109/60,Pain: 0/10,GCS: 14,Temp: 98F,SpO2: 100,Revised Trauma: 12, Assessments @22:35MENTAL:Confused,Place Oriented,Time Oriented,Event Oriented,SKIN:HEENT:LUNG SOUNDS:ABDOMEN:PELVIS//GI:EXTREMITIES:Left Leg: Edema,Right Leg: Edema,PULSE:Radial: 2+ Normal,NEURO: Impression No Complaints or Injury/Illness Noted Procedures @22:35Surgical Mask on PatientResponse: Unchanged Timeline 22:22,Call Received 22:22,Psap Call 22:24,Dispatched 22:26,En Route 22:31,On Scene 22:34,At Patient 22:35,Surgical Mask on Patient,Response: Unchanged 22:48,BP: 101/50 M,PULSE: 69,RR: 18 R,SPO2: 99 Ox,ETCO2: ,BG: ,PAIN: 0,GCS: 14, 22:53,Depart Scene 23:00,BP: 109/60 M,PULSE: 62,RR: 18 R,SPO2: 100 Ox,ETCO2: ,BG: ,PAIN: 0,GCS: 14, 23:00,At Destination 23:18,Call Closed Disclaimer [facility] [address] [place] [address] EMS Patient Care Report Name: EARLINE POWELL Room #: REG [facility].#: [id number] Admission: 08/18/20 Attend Phys: Discharge: Date of : 34 Report #: [id number] v1.1 Copyright 2020 [employer] This EMS Care Summary contains data elements from the applicable legal record (which may be displayed differently). It is designed to provide pertinent information for the following purposes: continuity of care, clinical quality, and state data reporting. The complete legal record is available to ED staff and administrators of the receiving hospital in [employer]'s Patient Tracker. All data is provided "as is."
[~2020-08-18 23:14] MED LIST changes: +CALCIUM500 MG PO; +SLOW FE142 MG PO
[2020-08-18 23:17] VITALS: BP 103/48
[2020-08-18 23:37] LABS: HEMATOCRIT 25.2 % (37.0-47.0); HEMOGLOBIN 8.1 gm/dL (12.0-15.0); MCH 29.6 pg (26.0-34.0); MCV 92.5 fL (80.0-100.0); PLATELET COUNT 429 thou/uL (150-400); RBC 2.72 mil/uL (4.20-5.00); RDW 18.1 % (10.5-14.5); WBC 27.5 thou/uL (4.0-11.0)
[2020-08-18 23:42] LABS: CALCIUM 7.7 mg/dL (8.5-10.1); CREATININE 0.8 mg/dL (0.6-1.0); POTASSIUM 3.3 mmol/L (3.5-5.1)
[2020-08-18 23:47] LABS: ALBUMIN 1.9 g/dL (3.4-5.0); TOTAL BILIRUBIN 0.4 mg/dL (0.2-1.0); TOTAL PROTEIN 4.7 g/dL (6.4-8.2)
[2020-08-19] VITALS (7 sets, daily range): BP systolic 103–154; BP diastolic 48–59
[2020-08-19 00:01] LABS: URINE BILIRUBIN NEGATIVE (Negative); URINE BLOOD NEGATIVE (Negative); URINE CLARITY CLEAR; URINE COLOR YELLOW; URINE GLUCOSE-RANDOM* NEGATIVE (Negative); URINE KETONES TRACE (Negative); URINE NITRITE-REFLEX NEGATIVE (Negative); URINE PROTEIN (DIPSTICK) TRACE (Negative); URINE SPECIFIC GRAVITY 1.015 (1.005-1.035); URINE UROBILINOGEN 0.2 E.U./dl (0.2-1.0)
[2020-08-19 00:09] LABS: URINE LEUKOCYTES-REFLEX 3+ (Negative)
[2020-08-19 00:20] LABS: BACTERIA-REFLEX 1-9 Few /HPF (None Seen); CASTS None Seen /LPF (None Seen); CRYSTALS None Seen /LPF (None Seen); MUCUS 0-3 Light strn/LPF (None Seen); SQUAMOUS 0-3 Few /LPF (0-3); TRANSITIONAL EPITHEL CELL 4-10 Moderate /LPF (None Seen); URINE WBC-REFLEX >25 Many /HPF (0-5)
[2020-08-19] MEDS ORDERED: CALCITRATE200 MG PO (00:44)
[2020-08-19] MEDS ORDERED: PROTONIX40 M2 PO (00:45)
[2020-08-19] MEDS ORDERED: CHILDREN'S ASPI81 M1 PO (00:47)
[2020-08-19] MEDS ORDERED: LOPERAMIDE2 MG PO (00:47)
[2020-08-19] MEDS ORDERED: ZOCOR40 MG PO (00:48)
[2020-08-19] MEDS ORDERED: VENTOLIN HFA 1818 GM INH (00:49)
[2020-08-19] MEDS ORDERED: HYDROCODON-ACE1 EAC7 PO (00:49)
[2020-08-19 00:55] LABS: ABSOLUTE NEUTROPHILS 23.1 thou/uL (1.4-8.2); ANISOCYTOSIS 2+; METAMYELOCYTES 2 %; MYELOCYTES 2 %; TOXIC GRANULATION 2+
[2020-08-19] MEDS ORDERED: METOPROLOL TART25 MG PO (04:23)
[2020-08-19] MEDS ORDERED: VITAMIN C500 M2 PO (05:31)
--- NOTE | 2020-08-19 08:10 | NUR ---
ASSESSMENTS CHARTED, MEDS CHARTED GIVEN. RECEIVED REPORT FROM ED NURSE TAI. PATIENT ARRIVED FROM ED AT 0320. MED/SURG TELE. IV IN RIGHT FOREARM. PATIENT IS A FALL RISK DUE TO RECENT FALLS AT HOME. PATIENT INCONTINENT. WEARING BRIEFS WHEN UP. PATIENT ABLE TO ANSWER QUESTIONS CORRECTLY WHILE AT THE SAME TIME CONFUSED ABOUT OTHER FACTS. FALL PRECAUTIONS IN PLACE DURING SHIFT.
--- NOTE | 2020-08-19 18:30 | NUR ---
ASSUMED CARE OF PT AT SHIFT CHANGE. ASSESSMENT CHARTED. MEDS GIVEN PER AUG. PT A&OX2, CONFUSED. NO C/O PAIN. PT VERY UNSTEADY, TREMORS, X1 ASSIST WITH WALKER. WILL CONTINUE TO MONITOR FOR CHANGE AND FOLLOW POC.
--- NOTE | 2020-08-20 03:45 | NUR ---
ASSESSMENTS CHARTED, MEDS CHARTED GIVEN. PATIENT REST IN BED DURING SHIFT. CONFUSED ABOUT WHERE SHE IS AND WHAT TIME IT IS FREQUENTLY, EASILY REORIENTED. ON ABX THERAPY FOR UTI. DENIED PAIN. ON FALL PRECAUTIONS DURING SHIFT.
[2020-08-20 04:16] LABS: ALBUMIN 1.7 g/dL (3.4-5.0); CALCIUM 7.7 mg/dL (8.5-10.1); CREATININE 0.7 mg/dL (0.6-1.0); PHOSPHORUS 2.5 mg/dL (2.5-4.9); POTASSIUM 3.7 mmol/L (3.5-5.1)
[2020-08-20 04:26] LABS: HEMATOCRIT 23.5 % (37.0-47.0); HEMOGLOBIN 7.5 gm/dL (12.0-15.0); MCH 29.7 pg (26.0-34.0); MCHC 31.8 g/dL (28.0-37.0); MCV 93.5 fL (80.0-100.0); RBC 2.51 mil/uL (4.20-5.00); RDW 18.7 % (10.5-14.5); WBC 15.4 thou/uL (4.0-11.0)
[2020-08-20 05:49] VITALS: BP 119/82
[2020-08-20 07:36] VITALS: BP 180/80
--- NOTE | 2020-08-20 10:22 | NUR ---
ASSESSMENT: CM REVIEWED CHART. CM SPOKE WITH PATIENTS DAUGHTER MARIANA. PT WAS ADMITTED FROM [facility] DUE TO ABNORMAL LABS/UTI. PT JUST RECENTLY LEFT [facility] AND MOVED TO [facility]. DAUGHTER REPORTS SHE DOES NOT CURRENTLY HAVE HOME HELATH BUT THEY ARE REQUESTING THAT AT DISCHARGE AND HAVE NO PREFERENCE AND WANT TO USE WHOEVER [facility] USES. CM SPOKE WITH DON AT [facility] WHO REPORTS THAT THEY USE [facility]. REFERRAL SENT TO [facility]. PT/OT EVALS ARE PENDING WHETHER SHE MAY NEED POST ACUTE CARE VS HH. PT HAS A WALKER AND WHEELCHAIR AT HER GA APT WELL OXYGEN THROUGH PROVIDER [employer] (2L CONTIONUOUS). CM WILL CONTINUE TO FOLLOW TO ASSIST NEEDED PENDING PT/OT RECOMMENDATIONS. CM NOTIFIED BEDSIDE RN THAT COVID TEST WILL NEED TO BE COMPELTED PRIOR TO DISCHARGING.
[2020-08-20 11:20] VITALS: BP 150/60
[2020-08-20 15:32] VITALS: BP 144/66
--- NOTE | 2020-08-20 15:47 | NUR ---
FAXED CLINICAL UPDATE TO [facility] RECEIVED CONFIRMATION PT HAS HAS A SKILLED STAY THERE RECENTLY.
--- NOTE | 2020-08-20 19:41 | NUR ---
ASSUMED CARE OF PT AT SHIFT CHANGE. ASSESSMENT CHARTED. MEDS GIVEN PER AUG. PT ALERT TO SELF, CONFUSED, BECOMES ANXIOUS. ON 2L NC. NO C/O PAIN. WILL CONTINUE TO MONIOTR FOR CHANGES AND FOLLOW POC.
[2020-08-20 20:45] VITALS: BP 160/65
[2020-08-21 05:03] LABS: HEMATOCRIT 24.2 % (37.0-47.0); HEMOGLOBIN 7.7 gm/dL (12.0-15.0); MCH 29.5 pg (26.0-34.0); MCHC 31.7 g/dL (28.0-37.0); MCV 93.1 fL (80.0-100.0); RBC 2.6 mil/uL (4.20-5.00); RDW 18.8 % (10.5-14.5); WBC 15.5 thou/uL (4.0-11.0)
[2020-08-21 05:05] VITALS: BP 146/51
[2020-08-21 05:25] LABS: CALCIUM 8.1 mg/dL (8.5-10.1); CREATININE 0.8 mg/dL (0.6-1.0); POTASSIUM 3.9 mmol/L (3.5-5.1)
[2020-08-21 07:24] VITALS: BP 182/67
--- NOTE | 2020-08-21 08:13 | NUR ---
ASSUME CARE 1900. PT/VITALS STABLE. DENIES ANY PAIN/ A/O TO PERSONONLY BUT PLEASANT AND EASILY REDIRECTABLE. POOR TOLERANCE TO ACTIVITY. PT/OT EVALUATION. ASSESSMENT CHARTED. PROGRESSING MODERATELY TO POC. PLAN IS TO CONTINUE TO MANAGE INFECTION WITH ABX THERAPY. WILL CONTINUE TO FOLLOW WITH POC
--- NOTE | 2020-08-21 08:16 | NUR ---
Admit with UTI, hyponatremia which is improving. Confused. ST has assessed and rec regular diet. Wts stable but intake fair to poor. Will add oral supplement. Otherwise low nutrition risk
[2020-08-21 11:40] VITALS: BP 146/53
--- NOTE | 2020-08-21 14:08 | NUR ---
ON-GOING ASSESSMENT: CM REVIEWED CHART AND SPOKE WITH ATTENDING. PT IS SLOWLY PROGRESSING TOWARDS GOALS. PT IS STILL CONFUSED. CM SPOKE WITH TAB AT [facility] WHO REPORTS THEY ARE OUT OF NETWORK WITH PATIENTS INSURANCE FOR SNF BUT THEY CAN REQUEST A ONE-TIME CONTRACT DUE TO HER BEING FROM THEIR FACILITY. CM SPOKE WITH PATIENTS DAUGHTER AND SHE PREFERS NOT TO MOVE HER MOTHER COMMUNITIES AND WANTS TO TRY SNF IF SHE CAN STAY AT [facility]. CM FAXED REFERRAL AND NEGATIVE COVID TEST TO [facility] AND LEFT VM WITH TAB TO SEEK INSURANCE AUTH/ATTEMPT TO GET ONE TIME CONTRACT THROUGH INSURANCE FOR SNF. IF PATIENT IS UNABLE TO GO TO SNF [facility] IS FOLLOWING AND CAN ACCEPT FOR HOME HEALTH SERVICES AT DISCHARGE. CM WILL CONTINUE TO FOLLOW TO ASSIST NEEDED.
[2020-08-21 15:23] VITALS: BP 148/56; BP 173/73
--- NOTE | 2020-08-21 16:31 | NUR ---
ASSESSMENT CHARTED . PT ALERT ABD ORIENTED TO PERSON AND PLACE. FORGETFULL. PLEASANTLY CONFUSED. DENIED HAVING PAIN OR DISCOMFORT. UP IN THE CHAIR THIS SHIFT. SR ON TELE. DAUGHTER UPDATED ON PT'S PROGRESS. NO CONCERNS AT THIS TIME. PT PROGRESSING WELL TOWARDS DISCHARGE GOAL.
[2020-08-21 20:00] VITALS: BP 186/111
[2020-08-22 04:45] VITALS: BP 118/79
--- NOTE | 2020-08-22 05:10 | NUR ---
ASSUME CARE 1900. PT/VITALS STABLE. NO PAIN INDICATED. MODERATE TOLERANCE TO ACTIVITY. PT/OT EVAL AND TX. ASSESSMENT CHARTED. PROGRESSING MODERATELY WITH POC. A/O TO PERSON BUT PLEASANTLY CONFUSED AND EASILY REDIRECTED. PLAN IS TO CONTINUE TO ABX THERAPY. WILL CONTINUE TO MONITOR AND TREAT WITH POC
[2020-08-22 07:52] VITALS: BP 186/69
[2020-08-22] MEDS ORDERED: CIPRO250 M2 PO (10:17)
[2020-08-22 11:50] VITALS: BP 167/62
--- NOTE | 2020-08-22 11:54 | NUR ---
PT IS AXOX1, AWAKE, PLEASANT, CONFUSED, AND FORGETFUL. CASE MGMT CONSULTED. AWAITING PLACEMENT IN SNF WHERE SHE RESIDES, PER ENGRAVER LETTERING. PT HAS EXHIBITED IMPULSIVENESS TRYING TO GET UP TO USE BSC. PT IS EASY TO REDIRECT. FALL PRECAUTIONS IN PLACE. PT IS AFERBILE, BP IS HIGH, CONTROLLED WITH RX METOPROLOL. PT DENIES PAIN. POC IS TO CONTINUE TO MONITOR BP/HR.
--- NOTE | 2020-08-22 13:27 | NUR ---
Spoke with Freya at [facility] she has submitted for auth. but has not rec auth for skilled at this time.
[2020-08-22 15:16] VITALS: BP 152/65
--- NOTE | 2020-08-22 15:34 | NUR ---
FAXED CLINICAL UPDATE THIS AM RECEIVED CONFIRMATION AND SPOKE WITH ADM THEY RECEIVED UPDATE.
--- NOTE | 2020-08-22 17:18 | NUR ---
Awaiting auth for post acute care at [facility]. Sp with Freya in admissions. Updated dtr, patient and phys.
[2020-08-22 19:24] VITALS: BP 179/84
[2020-08-23 04:06] VITALS: BP 160/75
--- NOTE | 2020-08-23 07:58 | NUR ---
ASSESSMENTS CHARTED, MEDS CHARTED GIVEN. PATIENT RESTING IN BED DURING SHIFT. PATIENT CONFUSED BUT EASILY REDIRECTED. PATIENT SLEPT MOST OF THE NIGHT. FALL PRECAUTIONS IN PLACE DURING SHIFT. PLAN OF CARE IS TO RETURN TO [facility].
[2020-08-23 07:59] VITALS: BP 189/67
--- NOTE | 2020-08-23 13:47 | NUR ---
PT IS AXOX1, FORGETFUL, CONFUSED, BUT PLEASANT. DR ROSENBERG CONSULTED. CASE MGMT CONSULTED. AWAITING DISCHARGE TO SNF, PER PT'S INSURANCE. VS ELEVATED BP, CONTROLLED WITH RX METOPROLOL; AFEBRILE. PT/OT CONSULTED. PT SITTING UP IN CHAIR, RESTING COMFORTABLY. PT UPX1 WITH WALKER. FALL PRECAUTIONS IN PLACE. NO CONCERNS AT THIS TIME.
[2020-08-23 14:41] VITALS: BP 189/67
--- NOTE | 2020-08-23 14:43 | NUR ---
Ins auth rec'd for snf stay at [facility];however they report they are out of network and pt will be billed a higher copay according to her oon benefits. Dtr notified and she would prefer the pt go back to her [facility] apt there with HH. She has been on service with [facility] prior per [facility] as they are a primary hh agency for their [place] residents. [facility] notified and they can accept for readmission. The attending and unit rn updated. The attending is agreeable and will adjust the pt's dc orders for home to retirement with HH services. [facility] to call back with a fruit or nut picker time and confirm with their [facility] directory [place]. DC personal financial planner to fax her dc instructions and orders to [facility] and [facility].
[2020-08-23 15:23] VITALS: BP 156/60
--- NOTE | 2020-08-23 15:47 | NUR ---
FAXED DISCHARGE ORDERS, SUMMARY AND NEGATIVE COVID RESULT (08/20/20) TO [facility]. WILL CONFIRM WITH TAB/LIAISON THAT THEY RECEIVED. [facility] P [phone]; FAX [phone]
--- NOTE | 2020-08-23 19:10 | NUR ---
PT DISCHARGED TO [facility]; PT DAUGHTER AT THE BEDSIDE. PT IS AXOX1, CONFUSED, FORGETFUL. FALL PRECAUTIONS IN PLACE. PT IS UP X1 WITH WALKER, 2L NC. DISCHARGE EDUCATION ON MEDICATION CONDUCTED WITH DAUGHTER. DISCHARGED WITH WHEELCHAIR VAN. NO CONCERNS AT THIS TIME.
== END 2020-08-23 18:53 | disposition home or self-care (01) | DRG 314 ==
LOC: ER 23:14 → EROBS 08-19 00:57 → 2N 08-19 00:57
PROVIDERS: Emergency Medicine; Hospitalist; Nurse Practitioner Family; ADMIT Family Medicine; ATTEND Family Medicine
DX: I95.9 Hypotension, unspecified (principal); E43 Unspecified severe protein-calorie malnutrition; G93.41 Metabolic encephalopathy; N39.0 Urinary tract infection, site not specified; E87.1 Hypo-osmolality and hyponatremia; D64.9 Anemia, unspecified; Z20.822 Contact with and (suspected) exposure to COVID-19; Z96.641 Presence of right artificial hip joint; J44.9 Chronic obstructive pulmonary disease, unspecified; E78.5 Hyperlipidemia, unspecified; J45.909 Unspecified asthma, uncomplicated; K21.9 Gastro-esophageal reflux disease without esophagitis; F32.9 Major depressive disorder, single episode, unspecified; I50.9 Heart failure, unspecified; D72.829 Elevated white blood cell count, unspecified; E03.9 Hypothyroidism, unspecified; I11.0 Hypertensive heart disease with heart failure; Z90.49 Acquired absence of other specified parts of digestive tract; Z90.711 Acquired absence of uterus with remaining cervical stump; Z86.16 Personal history of COVID-19; Z98.42 Cataract extraction status, left eye; Z98.41 Cataract extraction status, right eye; Z87.81 Personal history of (healed) traumatic fracture; Z88.1 Allergy status to other antibiotic agents; Z88.8 Allergy status to other drugs, medicaments and biological substances; Z87.891 Personal history of nicotine dependence; F03.90 Unspecified dementia, unspecified severity, without behavioral disturbance, psychotic disturbance, mood disturbance, and anxiety
CPT/HCPCS: 10081

== ENCOUNTER 2020-08-29 16:17 | Inpatient (IN) | payer OTHER ==
[~2020-08-29] VITALS: Ht 167.6 cm; Wt 53.1 kg
--- NOTE | ~2020-08-29 | EMS ---
[address] [address] EMS Patient Care Report Name: EARLINE POWELL Room #: 454-P ADM IN M.R.#: [id number] Admission: 08/29/20 Attend Phys: Lei Wayne MD Discharge: Date of : 34 Report #: [id number] THIS REPORT FOR: //name// Report Transmitted: 08/29/2020 22:11 EMS Care Summary [facility] MED-ACT Incident [id number] @ 08/29/2020 15:39 Incident Location [address] [place] [address] Patient EARLINE POWELL Female, 84 Years 1935 Patient Address [address] [place] [address] Patient History Chronic Obstructive Pulmonary Disease (COPD),Hypertension (HTN),Gastro-Esophageal Reflux Disease (GERD),Hysterectomy, Patient Allergies Erythromycin,Iron,Dust allergy,House dust allergy,Seasonal allergy,Cipro, Patient Medications Felodipine, ASA, Carbidopa, Depakote, Levothyroxine, Lasix, Calcium, Metoprolol, Chief Complaint I have been feeling weak." Disposition Transported No Lights/Lanse Dispatch Reason Sick Person Transported To [facility] Narrative Upon arrival to the scene, found the pt laying in her bed appearing lethargic. [address] [address] EMS Patient Care Report Name: EARLINE POWELL Room #: 454-P [facility] IN [facility]#: [id number] Admission: 08/29/20 Attend Phys: Lei Wayne MD Discharge: Date of : 34 Report #: [id number] medical staff coordinator informed crews that she had been feeling this way for about a week. PT had her labs draw and noticed that her NA and Ca were below normal ranges. The Doctor wanted the pt sent out for treatment. PT denied any chest pain, abdominal pain or difficulty breathing. Pt denied any pain. Staff informed crews that the pt's leg appeared more swollen than normal. Pt had recently returned from the hospital for being treated for hyponatremia and a UTI. PT was assessed and v/s obtained. PT was transfer from her bed to the stretcher via sheet drag method. Pt was secured to the stretcher. Stretcher was secured in ambulance. BIOCOM to [facility] with pt information only. Upon arrival to [facility] pt was taken to [facility] bed. PT was transferred from critical access hospital stretcher to the bed via sheet drag method. Verbal report was given to RN and transfer of care was completed. Initial Vitals @16:02P: 83,SpO2: 36, @16:09P: 87,R: 16,BP: 130/67,GCS: 15,Glucose: 87,SpO2: 98,Revised Trauma: 12, @15:57P: 80,R: 16,BP: 143/74,Pain: 0/10,GCS: 15,Temp: 98F,SpO2: 88,Revised Trauma: 12, Assessments @15:52MENTAL:No Abnormalities,SKIN:HEENT:LUNG SOUNDS:General: No Abnormalities,ABDOMEN:General: No Abnormalities,PELVIS//GI:EXTREMITIES:PULSE:NEURO:No Abnormalities, Impression Generalized Weakness Timeline 15:38,Call Received 15:38,Psap Call 15:39,Dispatched 15:41,En Route 15:46,On Scene 15:51,At Patient 15:57,BP: 143/74 M,PULSE: 80,RR: 16 R,SPO2: 88 Ox,ETCO2: ,BG: ,PAIN: 0,GCS: 15, 16:00,Depart Scene 16:02,BP: / M,PULSE: 83,RR: R,SPO2: 36 Ox,ETCO2: ,BG: ,PAIN: ,GCS: , 16:09,BP: 130/67 M,PULSE: 87,RR: 16 R,SPO2: 98 Ox,ETCO2: ,B,PAIN: ,GCS: 15, 16:12,At Destination 16:43,Call Closed Disclaimer v1.1 Copyright 2020 [employer] [address] [address] EMS Patient Care Report Name: EARLINE POWELL Room #: 454-P [facility] IN ..#: [id number] Admission: 08/29/20 Attend Phys: Lei Wayne MD Discharge: Date of : 34 Report #: [id number] This EMS Care Summary contains data elements from the applicable legal record (which may be displayed differently). It is designed to provide pertinent information for the following purposes: continuity of care, clinical quality, and state data reporting. The complete legal record is available to ED staff and administrators of the receiving hospital in [facility]'s Patient Tracker. All data is provided "as is."
[~2020-08-29 16:17] MED LIST changes: +CALCITRATE200 MG PO; +CHILDREN'S ASPI81 M1 PO; +LOPERAMIDE2 MG PO; +METOPROLOL TART25 MG PO; +VITAMIN C500 M2 PO
[2020-08-29 16:18] VITALS: BP 117/43
[2020-08-29 17:35] LABS: URINE BILIRUBIN NEGATIVE (Negative); URINE BLOOD NEGATIVE (Negative); URINE CLARITY CLEAR; URINE COLOR YELLOW; URINE GLUCOSE-RANDOM* NEGATIVE (Negative); URINE KETONES NEGATIVE (Negative); URINE LEUKOCYTES-REFLEX TRACE (Negative); URINE NITRITE-REFLEX NEGATIVE (Negative); URINE PROTEIN (DIPSTICK) NEGATIVE (Negative); URINE SPECIFIC GRAVITY 1.015 (1.005-1.035); URINE UROBILINOGEN 0.2 E.U./dl (0.2-1.0)
[2020-08-29 18:00] LABS: HEMATOCRIT 32.4 % (37.0-47.0); HEMOGLOBIN 10.3 gm/dL (12.0-15.0); MCH 28.9 pg (26.0-34.0); MCHC 31.7 g/dL (28.0-37.0); MCV 91.1 fL (80.0-100.0); PLATELET COUNT 272 thou/uL (150-400); RBC 3.56 mil/uL (4.20-5.00); RDW 18.3 % (10.5-14.5)
[2020-08-29 18:03] LABS: WBC 52.8 thou/uL (4.0-11.0)
[2020-08-29 18:23] LABS: CALCIUM 7.6 mg/dL (8.5-10.1); POTASSIUM 3.7 mmol/L (3.5-5.1)
[2020-08-29 18:29] LABS: ALBUMIN 1.6 g/dL (3.4-5.0); MAGNESIUM 1.7 mg/dL (1.8-2.4); TOTAL BILIRUBIN 0.4 mg/dL (0.2-1.0); TOTAL PROTEIN 4.2 g/dL (6.4-8.2)
[2020-08-29 19:38] LABS: ABSOLUTE NEUTROPHILS 51.7 thou/uL (1.4-8.2); ANISOCYTOSIS 2+
[2020-08-29 19:56] VITALS: BP 117/42
[2020-08-29 20:03] VITALS: BP 110/46
[2020-08-29 20:41] VITALS: BP 129/48
[2020-08-30 04:54] VITALS: BP 107/45
[2020-08-30 05:44] LABS: HEMATOCRIT 25.4 % (37.0-47.0)
[2020-08-30 05:49] LABS: MCH 28.7 pg (26.0-34.0); MCHC 31.5 g/dL (28.0-37.0); MCV 91.2 fL (80.0-100.0); RBC 2.79 mil/uL (4.20-5.00)
[2020-08-30 05:56] LABS: WBC 42.4 thou/uL (4.0-11.0)
[2020-08-30 06:03] LABS: CREATININE 0.8 mg/dL (0.6-1.0); POTASSIUM 3.2 mmol/L (3.5-5.1)
--- NOTE | 2020-08-30 07:03 | EKG ---
[address] [place] [address] ELECTROCARDIOGRAM REPORT Name: EARLINE POWELL Room #: 454-P ADM IN M.R.#: [id number] Admission: 08/29/20 Attend Phys: Lei Wayne MD Discharge: Date of : 34 Report #: [id number] [facility] Test Date: 2020-08-29 Test Time: 18:40:19 Pat Name: EARLINE POWELL Department: Room: [facility] Gender: F Angiography Technologist: RODY : 1935 Requested By: Dov Ortiz Order Number: [id number] MD: Pb Echeverria Measurements Intervals [place] Rate: 84 P: 118 LA: 140 QRS: 20 QRSD: 98 T: 57 QT: 367 QTc: 434 Interpretive Statements Sinus rhythm Atrial premature complex Low voltage, extremity leads Minimal ST depression, diffuse leads Compared to ECG 08/08/2020 09:12:39 Atrial premature complex(es) now present Low QRS voltage now present ST (T wave) deviation still present Electronically Signed On 08-30-2020 7:02:52 CDT by Pb Echeverria [email or web address] <ELECTRONICALLY SIGNED> By: Pb Echeverria MD, FACC 08/30/20 0702 1840 1840 Pb Echeverria MD, [facility] /EPI
--- NOTE | 2020-08-30 08:06 | NUR ---
VSS-AFEBRILE. ALERT AND ORIENTED X 4 ON ADMISSION AND THROUGH SHIFT. FLAT AFFECT, AND VERY QUIET. NO C/O PAIN. INCONTINENT OF URINE AND MULTIPLE DIARRHEA STOOLS OVERNIGHT. CLEANSED AND TURNED CARTER TWO HOURS FOR COMFORT. TOLERATING FLUIDS WELL. SR-3LNC IN PLACE. FALL PRECAUTIONS IN PLACE, CALLS APPROPRIATELY FOR ANY NEEDED ASSISTANCE.
[2020-08-30 08:21] VITALS: BP 132/54
--- NOTE | 2020-08-30 08:22 | NUR ---
Seen by Dr. Wayne, home meds in the system and reviewed by Dr. Saul.
[2020-08-30 16:27] VITALS: BP 135/63
--- NOTE | 2020-08-30 19:21 | NUR ---
aSSUMED CARE OF PT THIS MORNING AT 0700. PT WAS A&OX4, NEED AST WITH TURNING. PT HAS LARGE SACRAL NONHEALING WOUND AND DRESSING IS CDI. LUNGS CLEAR, EYES PERRLA, SKIN W/D/P IN ALL OTHER AREAS AND INTACT. CR<3SEC, PT'S CALL LIGHT AND OTHER NEEDS PLACED WIHIN REACH. ASSESSMENT OTEHRWISE UNREMARKABLE. PT IS BEING DISCHARGED TO REHAB FACILIY. PT HAS ALL PAPERWOK COMPLETED AND PICTURE OF HER WOULD AKEN WITH NEW DRESSING CHANGE. PT PICKED UP BY [facility] WITH REPORT AND PAPERWORK TO GO WITH PT. WHEELCHAIR ACCIDENTLY LEFT BEHIND,
[2020-08-30 21:17] VITALS: BP 135/44
--- NOTE | 2020-08-31 04:35 | NUR ---
VSS-AFEBRILE. OCCASIONAL C/O STOMACH CRAMPING THAT IS RELIEVED WITH PO PAIN MEDICATIONS. TURNED AND CHANGED PAD EVERY TWO HOURS DUE TO INCONTINENCE. CONTINUES TO HAVE FREQUENT WATERY STOOLS. TAKING IN FLUIDS WELL. CALLS APPROPRIATELY FOR ANY NEEDED ASSISTANCE.
[2020-08-31 04:52] LABS: HEMOGLOBIN 8.8 gm/dL (12.0-15.0); MCH 29.5 pg (26.0-34.0); MCHC 32.6 g/dL (28.0-37.0); MCV 90.2 fL (80.0-100.0); RBC 2.99 mil/uL (4.20-5.00); RDW 17.8 % (10.5-14.5); WBC 28.1 thou/uL (4.0-11.0)
[2020-08-31 05:07] LABS: CALCIUM 7.3 mg/dL (8.5-10.1); CREATININE 0.7 mg/dL (0.6-1.0); POTASSIUM 3.3 mmol/L (3.5-5.1)
[2020-08-31 07:50] VITALS: BP 143/81
--- NOTE | 2020-08-31 12:11 | NUR ---
unable to visit with arturo rt on isolations and conserve on ppe. cm provided verbal update to tuyet ralph at [facility] bedside nurse to call [facility] house principal [phone], fax dc orders to [phone]. send chart copy. bedside nurse to call report to [phone], if facility does not have transportation call express at [phone]
[2020-08-31 16:10] VITALS: BP 131/47
--- NOTE | 2020-08-31 17:25 | NUR ---
ASSUMED CARE THIS MORNING AT 0810. PT IS A&OX4 WITH EXPECTED AFFECT. SKIN W/D/P, NO TENTING, CR< 3SEC, EYES PERRLA, REDNESS TO BUTTOCKS COATED WITH BARRIER CREAM. LUNGS CLEAR IN ALL LOBES. OZ/NC @ 3L, PT HAS BEEN TURNED Q2H AND HAS BEEN MOVED TO RECLINER /PT. PT HAS BEEN IN RECLINER FOR APPROX 2HRS AND HAS RETURNED TO THE BED. Assessment was otherwise unremarkable. SCD IN PLACE LOWER CALFS, IV IN LF FA. CALL LIGHT AND NEEDS PLACED WITHIN REACH.
[2020-08-31 20:44] VITALS: BP 153/67
--- NOTE | 2020-09-01 07:32 | NUR ---
VSS-AFEBRILE. ALERT AND ORIENTED X 2-3. INCONTINENT OF ONE LARGE WATERY STOOL OVERNIGHT. NO IV. TOLERATING AND TAKING IN APPROPRIATE AMOUNT OF ORAL FLUIDS. TURNED EVERY TWO HOURS FOR COMFORT. FALL PRECAUTIONS IN PLACE.
[2020-09-01 08:07] VITALS: BP 116/52
[2020-09-01 08:24] LABS: HEMATOCRIT 27.2 % (37.0-47.0); HEMOGLOBIN 8.6 gm/dL (12.0-15.0); MCH 28.8 pg (26.0-34.0); MCHC 31.6 g/dL (28.0-37.0); MCV 91.1 fL (80.0-100.0); RBC 2.99 mil/uL (4.20-5.00); RDW 18.1 % (10.5-14.5); WBC 16.7 thou/uL (4.0-11.0)
[2020-09-01 08:36] LABS: CALCIUM 7.5 mg/dL (8.5-10.1); CREATININE 0.7 mg/dL (0.6-1.0); POTASSIUM 3.6 mmol/L (3.5-5.1)
--- NOTE | 2020-09-01 11:56 | NUR ---
ASSUMED CARE OF PT AT 0700 THIS MORNING. PT IS AWAKE AND ALERT X2-3 AND IS EASILY CONFUSED AND FORGETTFUL. SKIN W/D/P, CR< 3SEC, LUNGS CLEAR ALL LOBES. PT HAS HAD 2 LARGE BM EPISODES THIS MORNING. ABD, SOFT NONTENDER, IRRITATION TO THE COCCYX AREA DUE TO THE DIARHEA. IV WAS PULLED BY PT LAST NIGHT AND HAS NOT BEEN REPLACED BY IV TEAM. ASSESSMENT OTHERWISE UNREMARKABLE. CALL LIGHT AND NEEDS PLACED WITHIN REACH.
[2020-09-01 17:32] VITALS: BP 118/48
[2020-09-01 20:55] VITALS: BP 134/61
--- NOTE | 2020-09-02 03:03 | NUR ---
PT IS A/O X4 AND IS UP WITH ASSISTANCE. 3 LITERS OF O2 NC. SR ON THE MONTIOR. NO BM THIS SHIFT. PT DENIES ANY C/O PAIN OR DISCOMFORT. HS BS WAS WNL. PT ATE A BEDTIME SNACK AND STATED SHE WAS VERY TIRED.CONTINUES ISOLATION FOR C-DIFF. FALL PRECAUTIONS IN PLACE, CALL LIGHT IS WITHIN REACH. WILL CONTINUE TO MONITOR
[2020-09-02 08:54] VITALS: BP 146/50
--- NOTE | 2020-09-02 16:12 | NUR ---
PT ALERT AND ORIENTED TIMES THEE WITH PERIODS OF CONFUSION. VSS. IVF INFUSING PER ORDER. PT DENIES PAIN/SOA. PT TOLERATES MEDS AND MEALS. WILL CONTINUE TO MONITOR.
[2020-09-02 16:44] VITALS: BP 143/49
[2020-09-02 19:28] VITALS: BP 109/49
--- NOTE | 2020-09-03 04:04 | NUR ---
PT IS A/O X3 AND IS FORGETFUL AND CONFUSED AT TIMES. HAS NOT GOTTEN OUT OF BED AND APPEARS FATIGUED. CONTINUES ON 3 LITERS NC. SR ON THE MONITOR. BP LOW AND DID NOT REQUIRE BP MEDICATION TO BE GIVEN AT HS. 1 EPISODE OF INCONTINENCE OF LOOSE STOOL THIS NOC. FALL PRECAUTIONS IN PLACE, CALL LIGHT IS WITHIN REACH. WILL CONTINUE TO MONITOR.
[2020-09-03 08:17] VITALS: BP 124/56
[2020-09-03 08:36] VITALS: BP 124/56
--- NOTE | 2020-09-03 13:21 | NUR ---
WOUND CONSULT; THE PATIENT HAS A TINY STAGE 2 PRESSURE INJURY. SCANT DRAINAGE. 0.2 X 0.2 X 0.1. NO S/S OF INFECTION. THE PATIENT IS MILDLY CONFUSED. THE PATIENT CAN MINIMALLY TURN HERSELF WITH SOME ASSISTANCE. SEOSANGINOUS DRAINGE. RECOMMENDATIONS; -TURN PATIENT Q2H AT A MINIMUM. -APPLY ZGUARD BID/PRN -WEAR PRAFO BOOTS AT ALL TIMES. RN PRESENT
[2020-09-03 13:56] LABS: HEMATOCRIT 28.6 % (37.0-47.0); HEMOGLOBIN 9.1 gm/dL (12.0-15.0); MCH 29.1 pg (26.0-34.0); MCHC 31.8 g/dL (28.0-37.0); MCV 91.4 fL (80.0-100.0); RBC 3.13 mil/uL (4.20-5.00); RDW 17.7 % (10.5-14.5); WBC 13.3 thou/uL (4.0-11.0)
--- NOTE | 2020-09-03 14:50 | NUR ---
FAXED REFERRAL TO [facility] RECEIVED CONFIRMATION AND LEFT MSG WITH EMMETT IN ADM.
--- NOTE | 2020-09-03 15:33 | NUR ---
cm dtrgaston, called and asked referral to be sent to [facility]. artur s/w gaston and informed her, [facility] stated they are out of network so there would be an $225/day copay. therefore, gaston asked that a referral be sent to [facility]. d/c equipment plannerleighton to fax referral.
--- NOTE | 2020-09-03 17:10 | NUR ---
FAXED REFERRAL TO [facility] SPOKE WITH AMANDA IN ADM SHE RECEIVED REFERRAL AND WILL SPEAK WITH (SW) REGARDING REFERRAL WILL F/U WITH FACILITY IN THE AM.
[2020-09-03 17:16] VITALS: BP 129/58
--- NOTE | 2020-09-03 17:56 | NUR ---
ASSUMED CARE OF PATIENT AT SHIFT CHANGE. ASSESSMENT CHARTED. MEDICATIONS ADMINISTERED PER EMAR. VS REMIAN STABLE. PATIENT IS A&OX2-3 AND BECOMES VERY CONFUSED IN AFTERNOON. ONETIME DOSE OF HALDOL ORDERED FOR YELLING/AGITATION. PATIENT ON BEDREST PER PT/OT UNTIL C-DIFF/BOWEL FREQUENCY IMPROVES. SMALL OPEN AREA ON SACRUM DRESSED W ZGUARG. LOW AIRLOSS MATRESS ORDERED AND INSTALLED. PRAFO BOOTS APPLIED ON PATIENT. PATIENT REPOSITIONED W PILLOWS. C/O PAIN ON LOWER BACK SIDE; REPOSITIONED AND PRN PO ANALGESIC ADMINISTERED. POOR APPETITE BUT ENCOURAGED BY NURSING STAFF. VOICING "WANTING TO GO BACK HOME". AWAITING PLACEMENT. CM ON BOARD. WILL CONTINUE TO MONITOR AND FREQUENTLY CHECK ON PATIENT. FALL PRECAUTIONS REMAIN IN PLACE.
[2020-09-03 18:51] VITALS: BP 93/50
--- NOTE | 2020-09-04 05:31 | NUR ---
Pt. rested quietly at intervals during the night when checked on during frequent rounds.She has been incontinent of loose stools during the night. C-diff precautions in place. Bed alarm is on.
[2020-09-04 08:02] VITALS: BP 100/47
[2020-09-04 09:00] VITALS: BP 100/47
[2020-09-04 09:06] LABS: CALCIUM 7.4 mg/dL (8.5-10.1); CREATININE 0.6 mg/dL (0.6-1.0); POTASSIUM 5.2 mmol/L (3.5-5.1)
--- NOTE | 2020-09-04 12:20 | NUR ---
REFERRAL HAD BEEN SENT TO [facility]. THEY ARE ABLE TO ACCEPT PT AND HAVE SUBMITTED FOR AUTH. CM FOLLOWING REGARDING DC PLANNING.
--- NOTE | 2020-09-04 13:40 | NUR ---
[facility] HAS AUTH TO ACCEPT PT THIS DAY. PHYSICIAN INDICATED THAT PT IS MEDICALLY STABLE TO DISCHARGE. WE ARE AWAITING ORDERS. NO NEW COVID TEST NEEDED. CM TO FACILITATE DC TO [facility] SKILLED THIS DAY.
[2020-09-04] MEDS ORDERED: FIRVANQ50 MG/1 ML PO (13:57)
--- NOTE | 2020-09-04 15:27 | NUR ---
ASSUMED CARE OF PATIENT AT SHIFT CHANGE; 0700. ASSESSMENT CHARTED. MEDICATIONS ADMINISTERED PER EMAR. VITALS REMAIN STABLE. PATIENT IS A&OX3 UPON ASSESSMENT BUT GETS CONFUSED AND ANXIOUS AT TIMES; MOST NOTED IN AFTERNOON. PATIENT HAS BEEN SEEN BY PROVIDER AND CLEARED TO DISCHARGE TO [facility] THIS DAY 09/04/20. BM'S LESS FREQUENT. NOW SOFT, UNFORMED. TOLERATING DIET WELL. SON IN LAW TO BRING CLOTHING FOR PATIENT TRANSFER; SCHEDULED AT 1600 THIS DAY. TELEMETRY DISCONTINUED. IV DISCONTINUED. FALL PRECAUTIONS REMAIN IN PLACE. WILL CONTINUE TO MONITOR UNTIL DISCHARGE
--- NOTE | 2020-09-04 15:33 | NUR ---
I agree with the CARD GAME OPERATOR assessment.
[2020-09-04 15:45] LABS: HEMOGLOBIN 9.5 gm/dL (12.0-15.0); MCH 29.3 pg (26.0-34.0); MCHC 31.7 g/dL (28.0-37.0); MCV 92.5 fL (80.0-100.0); RBC 3.24 mil/uL (4.20-5.00); RDW 18.3 % (10.5-14.5); WBC 14.5 thou/uL (4.0-11.0)
== END 2020-09-04 16:45 | DRG 371 ==
LOC: ER 16:17 → 4W 19:18 → EROBS 19:18 → 4W 20:04
PROVIDERS: Emergency Medicine; ADMIT Family Medicine; ATTEND Family Medicine
DX: A04.72 Enterocolitis due to Clostridium difficile, not specified as recurrent (principal); R65.11 Systemic inflammatory response syndrome (SIRS) of non-infectious origin with acute organ dysfunction; E43 Unspecified severe protein-calorie malnutrition; N39.0 Urinary tract infection, site not specified; E87.1 Hypo-osmolality and hyponatremia; I13.0 Hypertensive heart and chronic kidney disease with heart failure and stage 1 through stage 4 chronic kidney disease, or unspecified chronic kidney disease; N17.9 Acute kidney failure, unspecified; E03.9 Hypothyroidism, unspecified; Z96.651 Presence of right artificial knee joint; J44.9 Chronic obstructive pulmonary disease, unspecified; E78.5 Hyperlipidemia, unspecified; J45.909 Unspecified asthma, uncomplicated; I50.9 Heart failure, unspecified; F32.9 Major depressive disorder, single episode, unspecified; D72.829 Elevated white blood cell count, unspecified; R53.81 Other malaise; D64.9 Anemia, unspecified; N18.9 Chronic kidney disease, unspecified; F03.90 Unspecified dementia, unspecified severity, without behavioral disturbance, psychotic disturbance, mood disturbance, and anxiety; K21.9 Gastro-esophageal reflux disease without esophagitis; Z87.81 Personal history of (healed) traumatic fracture; Z88.1 Allergy status to other antibiotic agents; Z87.891 Personal history of nicotine dependence; Z90.49 Acquired absence of other specified parts of digestive tract; Z90.711 Acquired absence of uterus with remaining cervical stump; Z98.42 Cataract extraction status, left eye; Z98.41 Cataract extraction status, right eye; Z86.16 Personal history of COVID-19; Z79.899 Other long term (current) drug therapy
CPT/HCPCS: 10045